=== PATIENT | male | born 1955 | race Caucasian/White ===

== ENCOUNTER 2020-04-23 16:18 | Inpatient (IN) | payer MEDICARE, OTHER ==
[~2020-04-23] VITALS: Ht 182.9 cm; Wt 81.6 kg
[2020-04-23] MEDS ORDERED: METOPROLOL TART50 M1 ORAL (16:30)
[2020-04-23] MEDS ORDERED: LEVOTHYROXINE100 MC1 IV (16:30)
[2020-04-23] MEDS ORDERED: VITAMIN C250 MG ORAL (16:30)
[2020-04-23] MEDS ORDERED: BENZTROPINE MESY1 MG ORAL (16:30)
[2020-04-23] MEDS ORDERED: QUETIAPINE FUM100 MG ORAL (16:30)
[2020-04-23] MEDS ORDERED: ACETAMINOPHEN325 M1 ORAL (16:30)
[2020-04-23] MEDS ORDERED: ASPIRIN-LOW81 MG ORAL (16:30)
[2020-04-23] MEDS ORDERED: MILK OF MA400 MG/51 ORAL (16:30)
--- NOTE | 2020-04-23 16:37 | NUR ---
ED Nurse Note: Pt CRYS from [facility] for [facility] labs. Bun 67 and creatinine 2.2. Pt is alert and orientedx4, ambulatory. Pt set up on monitor. She has been seen by SOFIA. Pt is spitting at nurses. Mask on patient.
[2020-04-23 16:38] VITALS: BP 139/81
[2020-04-23 17:07] LABS: BASOPHILS % (AUTO) 1.1 % (0.0-2.0); EOSINOPHILS % (AUTO) 15.3 % (0.0-3.0); HEMATOCRIT 33.7 % (42.0-52.0); HEMOGLOBIN 10.8 G/DL (14.2-18.0); LYMPHOCYTES % (AUTO) 14.4 % (20.0-45.0); MEAN CORPUSCULAR VOLUME 99 FL (80-99); MONOCYTES % (AUTO) 7.6 % (1.0-10.0); NEUTROPHILS % (AUTO) 61.7 % (45.0-75.0); PLATELET COUNT 279 K/UL (150-450); RED BLOOD COUNT 3.39 M/UL (4.70-6.10); RED CELL DISTRIBUTION WIDTH 12.9 % (11.6-14.8); WHITE BLOOD COUNT 10.9 K/UL (4.8-10.8)
--- NOTE | 2020-04-23 17:12 | Emergency Room Report ---
History of Present Illness General Chief Complaint: Abnormal Labs Source: Patient Present Illness HPI 65-year-old male with history of schizophrenia here with abnormal labs. According patient's primary care provider the patient reportedly had an elevation of his BUN and creatinine at the nursing facility. Patient unable to provide any history secondary to his baseline psychosis but he denies any complaints at this time. Denies fevers, chills, chest pain, palpitation, shortness of breath, back pain, abdominal pain, nausea, vomiting, diarrhea, dysuria. Allergies: Coded Allergies: No Known Allergies (Unverified , 04/23/20) COVID-19 Screening Contact w/high risk pt: No Experienced COVID-19 symptoms?: No COVID-19 Testing performed MERCHANDISE FLOW ASSOCIATE: No Nursing Documentation-[facility] Past Medical History: No History, Except For Review of Systems All Other Systems: negative except mentioned in HPI Physical Exam Vital Signs Date Time Temp Pulse Resp B/P (MAP) Pulse Ox O2 Delivery O2 Flow Rate FiO2 04/23/20 16:14 97.0 70 20 146/82 (103) 100 Room Air Medical Decision Making Diagnostic Impression: Primary Impression: Hyperkalemia Additional Impression: VITALIY (acute kidney injury) ER Course Total critical care time: Approximately 45 minutes Due to a high probability of clinically significant, life threatening deterioration, the patient required the highest level of preparedness to intervene emergently and I personally spent this critical care time directly and personally managing the patient. This critical care time included obtaining a history, examining the patient, pulse oximetry, ordering and reviewing studies, ordering treatments, evaluating response to treatment and updating management plan as needed, frequent reassessment and discussion with other providers as well as arranging for ultimate disposition. This critical to care time was performed to assess and manage the high probability of life-threatening deterioration that could result in multiorgan failure. This critical care time is separate from the separately billable procedures and treating other patients. EKG: NSR, no ischemia, intervals WNL. No ectopy. Rate 67 bpm Rhythm strip: patient monitored for arrhythmias - no malignant dysrhythmias, runs of PVCs, nor pauses noted Laboratory Tests Test 04/23/20 16:37 04/23/20 17:30 04/23/20 18:15 White Blood Count 10.9 K/UL (4.8-10.8) H Red Blood Count 3.39 M/UL (4.70-6.10) L Hemoglobin 10.8 G/DL (14.2-18.0) L Hematocrit 33.7 % (42.0-52.0) L Mean Corpuscular Volume 99 FL (80-99) Mean Corpuscular Hemoglobin 31.7 PG (27.0-31.0) H Mean Corpuscular Hemoglobin Concent 31.9 G/DL (32.0-36.0) L Red Cell Distribution Width 12.9 % (11.6-14.8) Platelet Count 279 K/UL (150-450) Mean Platelet Volume 7.0 FL (6.5-10.1) Neutrophils (%) (Auto) 61.7 % (45.0-75.0) Lymphocytes (%) (Auto) 14.4 % (20.0-45.0) L Monocytes (%) (Auto) 7.6 % (1.0-10.0) Eosinophils (%) (Auto) 15.3 % (0.0-3.0) H Basophils (%) (Auto) 1.1 % (0.0-2.0) Sodium Level 141 MMOL/L (136-145) 141 MMOL/L (136-145) 143 MMOL/L (136-145) Potassium Level 6.3 MMOL/L (3.5-5.1) *H 6.1 MMOL/L (3.5-5.1) *H 4.7 MMOL/L (3.5-5.1) Chloride Level 111 MMOL/L (98-107) H 112 MMOL/L (98-107) H 113 MMOL/L (98-107) H Carbon Dioxide Level 18 MMOL/L (21-32) L 17 MMOL/L (21-32) L 18 MMOL/L (21-32) L Anion Gap 11 mmol/L (5-15) 12 mmol/L (5-15) 12 mmol/L (5-15) Blood Urea Nitrogen 67 mg/dL (7-18) H 67 mg/dL (7-18) H 68 mg/dL (7-18) H Creatinine 2.3 MG/DL (0.55-1.30) H 2.2 MG/DL (0.55-1.30) H 2.3 MG/DL (0.55-1.30) H Estimated Glomerular Filtration Rate 28.6 mL/min (>60) 30.1 mL/min (>60) 28.6 mL/min (>60) Glucose Level 97 MG/DL (74-106) 94 MG/DL (74-106) 85 MG/DL (74-106) Calcium Level 8.2 MG/DL (8.5-10.1) L 7.7 MG/DL (8.5-10.1) L 8.4 MG/DL (8.5-10.1) L Total Bilirubin 0.2 MG/DL (0.2-1.0) 0.2 MG/DL (0.2-1.0) 0.2 MG/DL (0.2-1.0) Aspartate Amino Transferase (AST) 27 U/L (15-37) 24 U/L (15-37) 25 U/L (15-37) Alanine Aminotransferase (ALT) 43 U/L (12-78) 37 U/L (12-78) 39 U/L (12-78) Alkaline Phosphatase 99 U/L (46-116) 92 U/L (46-116) 92 U/L (46-116) Troponin I 0.000 ng/mL (0.000-0.056) Total Protein 8.1 G/DL (6.4-8.2) 7.3 G/DL (6.4-8.2) 7.5 G/DL (6.4-8.2) Albumin 3.2 G/DL (3.4-5.0) L 2.9 G/DL (3.4-5.0) L 3.0 G/DL (3.4-5.0) L Globulin 4.9 g/dL 4.4 g/dL 4.5 g/dL Albumin/Globulin Ratio 0.7 (1.0-2.7) L 0.7 (1.0-2.7) L 0.7 (1.0-2.7) L CXR: indication AMS: Procedure: XRAY Chest 1v Indication: Shortness of breath Technique: One view of the chest Comparison: none Findings: There is nonspecific mild generalized interstitial prominence. No focal airspace consolidation. No effusions. Normal heart size. Impression: Nonspecific acuity indeterminate mild interstitial prominence. Correlate with clinical findings Negative for infiltrate 65-year-old male here with abnormal labs. Patient was found at his halfway to have an elevated BUN and creatinine and potassium. BUN 63 and creatinine 2.3. Patient's potassium on arrival to the emergency department 6.3. Patient had a largely normal EKG without any evidence of peaked T waves or other ST or T wave abnormalities. He was hemodynamically stable throughout the stay in the emergency department and appear to be in no acute distress. He was given calcium, insulin, dextrose, IV fluids, Lasix and a repeat CMP was checked after these medications were administered. Patient's repeat potassium is much improved. He again was hemodynamically stable and neurovascular intact. Currently awaiting results of urinalysis at this time. Chest x-ray was unrem arkable and patient exhibited no evidence of infection as he had normal vital signs. Patient was admitted to telemetry. Last Vital Signs Date Time Temp Pulse Resp B/P (MAP) Pulse Ox O2 Delivery O2 Flow Rate FiO2 04/23/20 16:38 97.0 84 18 139/81 99 Room Air Referrals: Jorge James MD (PCP) Yeyo Hamlin M.D. Apr 23, 2020 17:12
[2020-04-23 17:21] LABS: ALBUMIN 3.2 G/DL (3.4-5.0); ALBUMIN/GLOBULIN RATIO 0.7 (1.0-2.7); BILIRUBIN,TOTAL 0.2 MG/DL (0.2-1.0); CALCIUM 8.2 MG/DL (8.5-10.1); CREATININE 2.3 MG/DL (0.55-1.30)
[2020-04-23 17:23] LABS: POTASSIUM 6.3 MMOL/L (3.5-5.1)
[2020-04-23] MEDS ORDERED: Calcium Gluconate 1gm/10ml vial IVP ONE (17:30)
[2020-04-23] MEDS ORDERED: Insulin Human Regular 100units/ml 3ml IV ONE (17:30)
--- NOTE | 2020-04-23 17:42 | Diagnostic Imaging Report ---
Indication: Shortness of breath Technique: One view of the chest Comparison: none Findings: There is nonspecific mild generalized interstitial prominence. No focal airspace consolidation. No effusions. Normal heart size. Impression: Nonspecific acuity indeterminate mild interstitial prominence. Correlate with clinical findings Negative for infiltrate
[2020-04-23 18:09] LABS: ALBUMIN 2.9 G/DL (3.4-5.0); ALBUMIN/GLOBULIN RATIO 0.7 (1.0-2.7); BILIRUBIN,TOTAL 0.2 MG/DL (0.2-1.0); CALCIUM 7.7 MG/DL (8.5-10.1); CREATININE 2.2 MG/DL (0.55-1.30)
[2020-04-23 18:11] LABS: POTASSIUM 6.1 MMOL/L (3.5-5.1)
[2020-04-23 18:44] VITALS: BP 132/76
[2020-04-23 18:56] LABS: CALCIUM 8.4 MG/DL (8.5-10.1); CREATININE 2.3 MG/DL (0.55-1.30); POTASSIUM 4.7 MMOL/L (3.5-5.1)
[2020-04-23 19:01] LABS: ALBUMIN/GLOBULIN RATIO 0.7 (1.0-2.7); BILIRUBIN,TOTAL 0.2 MG/DL (0.2-1.0)
[2020-04-23 20:00] VITALS: BP 134/69
--- NOTE | 2020-04-23 20:20 | NUR ---
ED Nurse Note: Recieved pt lying quietly in bed, arouses easily, awake and oriented x 4, deneis pain, has room for admission, waiting for Covid results, pt denies CP or any pain, no sob or labored breathing noted, has patent saline lock in left ac, will resume care as ordered and send to floor for admission when test results arrive.
[2020-04-23 20:37] LABS: APPEARANCE,URINE CLEAR; BILIRUBIN, URINE NEGATIVE (NEGATIVE); COLOR,URINE PALE YELLOW; GLUCOSE, URINE (UA) NEGATIVE (NEGATIVE); KETONES,URINE NEGATIVE (NEGATIVE); LEUKOCYTE ESTERASE ,URINE NEGATIVE (NEGATIVE); NITRITE,URINE NEGATIVE (NEGATIVE); PH,URINE 5 (4.5-8.0); PROTEIN,URINE 2+ (NEGATIVE); UROBILINOGEN,URINE NORMAL MG/DL (0.0-1.0)
--- NOTE | 2020-04-23 20:54 | Diagnostic Imaging Report ---
ADDENDUM - Added by Sylwia Hager M.D. on 04/25/2020 8:55 PM (-08:00) Addendum: Exam is a Renal US only- not an Abdomen complete. Only kidneys and urinary bladder were imaged. EXAM: US Abdomen Complete CLINICAL HISTORY: RENAL-A TECHNIQUE: Real-time ultrasound of the abdomen with image documentation. COMPARISON: No relevant prior studies available. FINDINGS: Liver: Unremarkable. No mass. No intrahepatic bile duct dilation. Gallbladder: Unremarkable. No gallstones. Common bile duct: Unremarkable as visualized. No stones. No dilation. Pancreas: Unremarkable as visualized. Kidneys: Right kidney measures 8.7 cm and contains a 1.2 cm cyst within the lower pole. Mild hydronephrosis. Left kidney measures 9.3 cm long axis. Mild hydronephrosis. No stones. Spleen: Unremarkable. No splenomegaly. Aorta: Unremarkable. No aneurysm. Inferior vena cava: Unremarkable. Other findings: Large volume of urine retention postvoid measuring 620 mL. IMPRESSION: 1. Large volume of urine retention postvoid with mild bilateral hydronephrosis. 3. 1.2 cm cyst lower pole right kidney. No follow-up imaging necessary
[2020-04-23] MEDS ORDERED: Tamsulosin 0.4mg cap ORAL SCH (21:00)
[2020-04-23 22:00] VITALS: BP 138/88
--- NOTE | 2020-04-23 22:08 | NUR ---
ED Nurse Note: Pt has room for admission, report called to floor nurse VANDANA Patterson, pt is awake and oriented x 4, ambulatory, no changes or distress noted, taken to unit via gurney with cardiac monitoring, nad noted during transfer to floor unit.
--- NOTE | 2020-04-23 22:20 | NUR ---
NURSE NOTES: Report received from VANDANA Fields.
--- NOTE | 2020-04-23 22:32 | NUR ---
NURSE NOTES: Received patient from E.R via [facility]. Patient is awake, alert and oriented x 2-3. Oriented. Oriented to room and telemetry unit. Place cardiac specialist and shows sinus rhythm with no complaints of chest pain. Patient is o room air, sating 98%. IV site is on left AC G-20 saline lock that is patent and intact. Safety measures are in place, bed in lowest and locked position, side rails up x 2, call light button and bedside table within reach, instructed to call for any assistance needed. Will call MD for admission orders.
[2020-04-23 22:35] VITALS: BP 156/88
--- NOTE | 2020-04-23 22:55 | NUR ---
NURSE NOTES: Called Dr. James and left a message, awaiting for call back.
[2020-04-23] MEDS: Metoprolol Tartrate 50mg tab ORAL SCH (23:09)
[2020-04-24] VITALS: BP 144/81
[2020-04-24 04:00] VITALS: BP 144/86
[2020-04-24] MEDS: Levothyroxine 25mcg tab ORAL SCH (06:02)
[2020-04-24 07:10] LABS: BASOPHILS % (AUTO) 0.8 % (0.0-2.0); EOSINOPHILS % (AUTO) 8.7 % (0.0-3.0); HEMATOCRIT 35.4 % (42.0-52.0); HEMOGLOBIN 11.2 G/DL (14.2-18.0); LYMPHOCYTES % (AUTO) 15.4 % (20.0-45.0); MEAN CORPUSCULAR VOLUME 102 FL (80-99); MONOCYTES % (AUTO) 6.8 % (1.0-10.0); NEUTROPHILS % (AUTO) 68.4 % (45.0-75.0); PLATELET COUNT 297 K/UL (150-450); RED BLOOD COUNT 3.49 M/UL (4.70-6.10); RED CELL DISTRIBUTION WIDTH 12.5 % (11.6-14.8)
--- NOTE | 2020-04-24 07:25 | NUR ---
NURSE HAND-OFF REPORT: Important Events on Shift: Patient has been resting well confortably with no complaints made. Patient Status: Patient is awake on bed, in stable condition. Plan of care endorsed. Diet: Regular, pureed moist. Pending Orders: none Pending Results/Labs: Laboratory result that was done this morning Pending MD notification:none Latest Vital Signs: Temperature 97.8 , Pulse 72 , B/P 144 /86 , Respiratory Rate 19 , O2 SAT 99 , Room Air, O2 Flow Rate . Vital Sign Comment: stable EKG Rhythm: Sinus Rhythm Rhythm change?: N MD Notified?: - MD Response: Latest Dawson Fall Score: 45 Fall Risk: High Risk Safety Measures: Call light Within Reach, Bed Alarm Zone 1, Side Rails Side Rails x2, Bed position Low and Locked. Fall Precautions: Yellow Socks Door Sign Patient Fall Education Report given to VANDANA Larose.
--- NOTE | 2020-04-24 07:30 | NUR ---
NURSE NOTES: Received pt from VANDANA Mares, pt is awake and confused, pt is in RA, no SOB or acute respiratory distress noted. pt is on continues parikh monitoring. pt has intact iv access LAC 20G SL. Pt is eating breakfast by observation, All needs attended, bed is locked and is in the lowest position, call light within easy reach. will continue to monitor.
[2020-04-24 07:40] LABS: ALANINE AMINOTRANSFERASE 38 U/L (12-78); ALBUMIN 3.2 G/DL (3.4-5.0); ALBUMIN/GLOBULIN RATIO 0.7 (1.0-2.7); ALKALINE PHOSPHATASE 103 U/L (46-116); ASPARTATE AMINO TRANSFERASE 26 U/L (15-37); BILIRUBIN,TOTAL 0.2 MG/DL (0.2-1.0); BLOOD UREA NITROGEN 63 mg/dL (7-18); CALCIUM 8.2 MG/DL (8.5-10.1); CHOLESTEROL 153 MG/DL (< 200); CREATINE KINASE 92 U/L (26-308); CREATININE 2.4 MG/DL (0.55-1.30); FERRITIN 113 NG/ML (8-388); GAMMA GLUTAMYL TRANSPEPTIDASE 12 U/L (5-85); HDL CHOLESTEROL 50 MG/DL (40-60); LACTATE DEHYDROGENASE 188 U/L (81-234); PHOSPHORUS 4.2 MG/DL (2.5-4.9); POTASSIUM 4.8 MMOL/L (3.5-5.1); SODIUM 139 MMOL/L (136-145)
[2020-04-24 07:51] LABS: ANION GAP 12 mmol/L (5-15); CARBON DIOXIDE 19 MMOL/L (21-32); CHLORIDE 108 MMOL/L (98-107); TRIGLYCERIDES 58 MG/DL (30-150)
[2020-04-24 08:00] VITALS: BP 118/70
[2020-04-24 08:08] LABS: % IRON SATURATION 23 % (15-50); IRON 50 ug/dL (50-175); TOTAL IRON BINDING CAPACITY 218 ug/dL (250-450)
[2020-04-24] MEDS ORDERED: Varibar Honey 250ml MC PRN (08:15)
[2020-04-24] MEDS ORDERED: Varibar Pudding 230ml MC PRN (08:15)
[2020-04-24] MEDS ORDERED: Varibar Nectar 240ml MC PRN (08:15)
[2020-04-24] MEDS ORDERED: Varibar Thin Liquid powder 148gm MC PRN (08:15)
--- NOTE | 2020-04-24 08:41 | NUR ---
Speech Pathology Note (Bedside Dysphagia Evaluation) Brief Note: Mr. Sinclair is a 65 year old male presents with schizophrenia admitted from [facility] on 04/23/2020 for hypokalemia and increased in BUN and creatine. Findings: Mr. Sinclair is alert and oriented to self, place(hospital) and time. He has some tardive dyskinesia with reduced speech intelligibility. He said he does not have dentures. He had his breakfast and stated he did well without problems. He enjoyed oat meal according to him. Given him PO trial, he has mild oral phase issues due to tardive dyskinesia and lack of teeth. His PO diet at [facility] is mechanical soft diet and thin liquid. Current diet is pureed her [place]. Interpretation: 1. Mild oral phase of dysphagia with tardive dyskinesia and lack of teeth Plan: 1. Continue with pureed and thin liquid during this hospital course -Swallow evaluation at [facility]/or his residency to re-adjust his diet texture Becki Carmen
[2020-04-24] MEDS: Aspirin EC 81mg tab ORAL SCH (09:53)
[2020-04-24] MEDS: Metoprolol Tartrate 50mg tab ORAL SCH ×2 (09:53→20:26)
--- NOTE | 2020-04-24 09:59 | NUR ---
NURSE NOTES: Dr James visited pt and is aware about hydronephrosis and urin retention, ordered consult with Dr Acosta and Dr Ramos, noted and carried out, both MD are aware. will continue to monitor.
[2020-04-24] MEDS ORDERED: ASCORBIC ACID500 MG ORAL (10:29)
[2020-04-24] MEDS ORDERED: BENZTROPINE ME0.5 MG ORAL (10:29)
[2020-04-24] MEDS ORDERED: SYNTHROID25 MCG ORAL (10:29)
--- NOTE | 2020-04-24 11:00 | History and Physical Report ---
DATE OF ADMISSION: 04/23/2020 HISTORY OF PRESENT ILLNESS: The patient admitted for acute renal failure. The patient has been having chronic renal insufficiency that is getting worse gradually. The patient also has hyperkalemia admitted for that reason as well. The patient denies nausea, vomiting, or diarrhea. Denies rectal bleeding. Denies shortness of breath. Denies cough. Denies fever or chills. Denies weight gain. PAST MEDICAL HISTORY: Chronic renal insufficiency, hypothyroidism, hypertension, BPH, psychosis. PAST SURGICAL HISTORY: Left hand surgery. MEDICATIONS: Aspirin, vitamin C, Cogentin, Levoxyl, metoprolol, and Seroquel. ALLERGIES: No known allergies. FAMILY HISTORY: Noncontributory. SOCIAL HISTORY: He has history of smoking. Denies history of drug and alcohol abuse. PHYSICAL EXAMINATION: VITAL SIGNS: Temperature is 98, pulse 79, blood pressure 144/81. HEENT: PERRLA. NECK: Supple. No lymphadenopathy. CHEST: Clear to auscultation. CARDIOVASCULAR: Regular rate and rhythm. No murmurs or extra sounds. GASTROINTESTINAL: Soft, nontender, nondistended. No organomegaly. EXTREMITIES: No edema. Moves all four extremities. Sensory intact to light touch. Reflexes in both sides. Has generalized weakness. Dorsalis pedal pulses are present. LABORATORY DATA: WBC of 10.9, hemoglobin of 10.8, platelets of 279. Sodium 141, potassium of 6.3, BUN of 67, creatinine of 2.3, glucose of 97. ASSESSMENT AND PLAN: Hyperkalemia. Acute renal failure on top of chronic renal failure. The patient already got treatment for the hyperkalemia from the emergency room, . I have consulted Dr. Acosta, Dr. Supa Grey, Dr. Ramos for the bilateral hydronephrosis that shows on the ultrasound as well as for acute renal failure management. Dr. Supa Grey has been consulted to rule out any UTI or infectious etiology. Jorge James M.D. DR: Chantel JOB#: [id number] CC:
[2020-04-24 12:00] VITALS: BP 111/73
--- NOTE | 2020-04-24 12:51 | NUR ---
P.T Note: P.T evaluation completed. Pt is alert, oriented to self but not to time and current situation. Pt however is cooperative and follows commands appropriately. Pt is independent with ADL/functional mobilities and able to ambulate within the room and along hallways w/o AD needed independently. Current functional status does note warrant skilled P.T service at this time. encourage OOB activities with nursing supervision. DC P.T services.
--- NOTE | 2020-04-24 13:13 | NUR ---
NURSE NOTES:WOUND ASSESSMENT PATIENT AWAKE AND ALERT. SKIN ASSESSMENT PERMITTED OF FEET AND SACRUM BUT HE REFUSED TO BE REPOSITIONED. BILATERAL LOW LEGS AND FEET APPEAR DRY AND SCALY, POSSIBLE DERMATITIS, THOUGH NO INDICATIONS OF ANY PRESSURE INJURY. SACRUM WELL WAS INTACT WITHOUT ANY REDNESS NOTED. RECOMMEND: CONTINUED WOUND PREVENTION PROTOCOLS ENCOURAGE REPOSITIONING ALLOWED BY PATIENT.
--- NOTE | 2020-04-24 14:00 | Consultation ---
DATE OF CONSULTATION: 04/24/2020 INFECTIOUS DISEASES CONSULTATION CONSULTING PHYSICIAN: Supa Grey MD PRIMARY ATTENDING PHYSICIAN: Jorge James MD REASON FOR CONSULTATION: Urinary retention. HISTORY OF PRESENT ILLNESS: This is a 65-year-old white male admitted yesterday from nursing facility because of abnormal labs, had elevated BUN and creatinine, also has hyperkalemia with potassium level of 6.3. WBC was slightly elevated at 10.9. The patient has abdominal ultrasound which showed post void urinary retention and mild bilateral hydronephrosis. PAST MEDICAL HISTORY: Significant for chronic kidney disease, hypothyroidism, hypertension, BPH, schizophrenia. PAST SURGICAL HISTORY: Left hand surgery. ALLERGIES: No known drug allergies. MEDICATIONS: Aspirin, levothyroxine, Tylenol, Flomax, metoprolol. SOCIAL HISTORY: Single. Denies alcohol, drug abuse, or smoking. pen[facility]iary resident. REVIEW OF SYSTEMS: The patient does not have any symptoms. PHYSICAL EXAMINATION: VITAL SIGNS: Temperature 98, pulse 79, blood pressure 118/70. GENERAL APPEARANCE: No acute distress. HEAD AND NECK: [place] conjunctiva. HEART: Normal rate. LUNGS: Clear. ABDOMEN: Soft and nontender. GENITOURINARY: Wayne catheter and clear urine. EXTREMITIES: No edema. LABORATORY AND DIAGNOSTIC DATA: WBC today is 10, hemoglobin 11.2, hematocrit 35.4, and platelets 297. Sodium 139, potassium 4.8, chloride 108, bicarb 19, BUN 63, creatinine 2.3. UA showed wbc's of 0 to 2, rbc's of 2 to 4. COVID test was negative. IMPRESSION: Urinary retention likely secondary to BPH, also bilateral hydronephrosis , acute kidney injury on chronic kidney disease, hyperkalemia that is corrected, hypertension that is well controlled, and hypothyroidism. RECOMMENDATION: Observe off antibiotic. We will follow up the cultures and clinical course. At the end of my exam, I thank Dr. James, for involving me in the care of this patient. Supa Grey M.D. DR: Desiree JOB#: [id number] CC: TREY
--- NOTE | 2020-04-24 14:56 | Consultation ---
Consult Note Consult Note I am asked to evaluate the patient at the request of Dr. Quesada for renal failure 65-year-old male with history of schizophrenia here with abnormal labs. According patient's primary care provider the patient reportedly had an elevation of his BUN and creatinine at the nursing facility. Patient unable to provide any history secondary to his baseline psychosis but he denies any complaints at this time. Denies fevers, chills, chest pain, palpitation, shortness of breath, back pain, abdominal pain, nausea, vomiting, diarrhea, dysuria. Allergies: No Known Allergies (Unverified , 04/23/20) COVID-19 Screening Contact w/high risk pt: No Experienced COVID-19 symptoms?: No COVID-19 Testing performed MOLDING PROCESS TECHNICIAN: No Vital Signs in ER Date Time Temp Pulse Resp B/P (MAP) Pulse Ox O2 Delivery O2 Flow Rate FiO2 04/23/20 16:14 97.0 70 20 146/82 (103) 100 Room Air PHYSICAL EXAMINATION: VITAL SIGNS: Temperature 98, pulse 79, blood pressure 118/70. GENERAL APPEARANCE: No acute distress. HEAD AND NECK: [place] conjunctiva. HEART: Normal rate. LUNGS: Clear. ABDOMEN: Soft and nontender. GENITOURINARY: Wayne catheter and clear urine. EXTREMITIES: No edema. LABORATORY AND DIAGNOSTIC DATA: WBC today is 10, hemoglobin 11.2, hematocrit 35.4, and platelets 297. Sodium 139, potassium 4.8, chloride 108, bicarb 19, BUN 63, creatinine 2.3. UA showed wbc's of 0 to 2, rbc's of 2 to 4. COVID test was negative. . Assessment/Plan Acute renal failure Hyperkalemia on presentation to ER Most likely underlying chronic kidney failure Urinary outlet obstruction, as per ultrasound results Bilateral hydronephrosis Mild anemia History of schizophrenia Suggestions: Wayne catheter Urological evaluation Slow hydration Avoid nephrotoxic Monitor renal parameters Discussed with PMD and RN Kidney ultrasound: 1. Large volume of urine retention postvoid with mild bilateral hydronephrosis. 3. 1.2 cm cyst lower pole right kidney. No follow-up imaging necessary Darien Acosta MD Apr 24, 2020 14:56
[2020-04-24] MEDS: Tamsulosin 0.4mg cap ORAL SCH (15:41)
[2020-04-24] MEDS: D5 1/2NS 1,000 ML IV SCH (15:42)
--- NOTE | 2020-04-24 15:46 | NUR ---
CASE MANAGEMENT:REVIEW BIBA FROM [facility] CC: ABNORMAL LABS SI: ACUTE RENAL FAILURE. HYPERKALEMIA 97.0 70 20 146/82 100% ON RA K+6.3 BUN+67 CR+2.3 IS: IV CALCIUM GLUCONATE IV INSULIN IV D50W 1L NS BOLUS IV LASIX : TO TELEMETRY
[2020-04-24 16:00] VITALS: BP 124/70
--- NOTE | 2020-04-24 19:20 | NUR ---
NURSE HAND-OFF REPORT: Important Events on Shift: Patient Status: Diet: Pending Orders: Pending Results/Labs: Pending MD notification: Latest Vital Signs: Temperature 97.6 , Pulse 73 , B/P 124 /70 , Respiratory Rate 20 , O2 SAT 98 , Room Air, O2 Flow Rate . Vital Sign Comment: EKG Rhythm: Sinus Rhythm Rhythm change?: N MD Notified?: - MD Response: Latest Dawson Fall Score: 60 Fall Risk: High Risk Safety Measures: Call light Within Reach, Bed Alarm Zone 1, Side Rails Side Rails x3, Bed position Low and Locked. Fall Precautions: Yellow Socks Yellow Gown Door Sign Patient Fall Education Report given to . pt is stable and awake, no stress noted. Endorsed plan of care. endorsed to monitor I/O.
--- NOTE | 2020-04-24 19:23 | NUR ---
NURSE NOTES: Report received from Thuan ROSS. Patient is noted to be awake and alert x 2. Patient is noted to be on room, no complaints of chest pain or shortness of breath at this time. Patient does not appear to be in respiratory distress at this time. Patient is noted to have left AC 20 brandi IV access with fluids running per MD orders. Patient is noted to have indwelling Wayne catheter that was placed today per Thuan ROSS. Wayne placed due to urinary retention, was endorsed to Brien ROSS that 1,200 cc of urine was drained during initial insertion of they Wayne catheter. Wayne is noted to continue to drain yellow urine at this time. Bed is locked, alarmed, and in lowest position. Call light in reach. Patient has no complaints at this time. Will continue to follow plan of care.
[2020-04-24 20:00] VITALS: BP 140/85
--- NOTE | 2020-04-24 23:59 | NUR ---
NURSE NOTES: patient found to have infiltrated IV access in right AC. IV removed by Brien ROSS. Brien ROSS elevated patients arm. 24 gaga IV access obtained in left hand, fluids continued per MD orders.
[2020-04-25] VITALS: BP 133/67
[2020-04-25 04:00] VITALS: BP 140/79
--- NOTE | 2020-04-25 04:10 | Cardiology Report ---
APPROVED REPORT EKG Measurement Heart [id number] <Conclusion> Normal sinus rhythm Minimal voltage criteria for LVH, may be normal variant Borderline ECG
[2020-04-25] MEDS: D5 1/2NS 1,000 ML IV SCH ×2 (05:15→17:07)
[2020-04-25 06:23] LABS: BASOPHILS % (AUTO) 0.8 % (0.0-2.0); HEMATOCRIT 34.9 % (42.0-52.0); HEMOGLOBIN 10.9 G/DL (14.2-18.0); LYMPHOCYTES % (AUTO) 20.5 % (20.0-45.0); MEAN CORPUSCULAR VOLUME 101 FL (80-99); MONOCYTES % (AUTO) 7.3 % (1.0-10.0); NEUTROPHILS % (AUTO) 52.4 % (45.0-75.0); PLATELET COUNT 277 K/UL (150-450); RED BLOOD COUNT 3.45 M/UL (4.70-6.10); RED CELL DISTRIBUTION WIDTH 12.4 % (11.6-14.8); WHITE BLOOD COUNT 10.4 K/UL (4.8-10.8)
[2020-04-25 06:52] LABS: ALBUMIN 2.8 G/DL (3.4-5.0); ALBUMIN/GLOBULIN RATIO 0.6 (1.0-2.7); BILIRUBIN,TOTAL 0.2 MG/DL (0.2-1.0); CALCIUM 8.1 MG/DL (8.5-10.1); CREATININE 2.4 MG/DL (0.55-1.30); POTASSIUM 5.5 MMOL/L (3.5-5.1)
[2020-04-25] MEDS: Levothyroxine 25mcg tab ORAL SCH (06:54)
--- NOTE | 2020-04-25 07:30 | NUR ---
NURSE NOTES: Received pt from VANDANA Tesfaye, pt is awake and confused, pt is in RA, no SOB or acute respiratory distress noted. pt is on continues parikh monitoring. pt has intact iv access LH 24G SL. Pt is eating breakfast by observation, Dr Acosta is aware about K 5.5 MG 1.7 and other labs and V/SMD will F/U. All needs attended, bed is locked and is in the lowest position, call light within easy reach. will continue to monitor.
--- NOTE | 2020-04-25 07:30 | NUR ---
NURSE HAND-OFF REPORT: Important Events on Shift: IV access obtained. patient slept most of shift. Patient Status: full code Diet: regular puree moist Pending Orders: none Pending Results/Labs:none Pending MD notification:none Latest Vital Signs: Temperature 97.2 , Pulse 70 , B/P 140 /79 , Respiratory Rate 20 , O2 SAT 96 , Room Air, O2 Flow Rate . Vital Sign Comment: within normal limits. EKG Rhythm: Sinus Rhythm Rhythm change?: N MD Notified?: - MD Response: Latest Dawson Fall Score: 60 Fall Risk: High Risk Safety Measures: Call light Within Reach, Bed Alarm Zone 1, Side Rails Side Rails x3, Bed position Low and Locked. Fall Precautions: Yellow Socks Yellow Gown Door Sign Patient Fall Education Report given to Kay ROSS.
[2020-04-25 08:00] VITALS: BP 155/68
[2020-04-25] MEDS: Tamsulosin 0.4mg cap ORAL SCH ×2 (08:49→17:06)
[2020-04-25] MEDS: Aspirin EC 81mg tab ORAL SCH (08:49)
[2020-04-25] MEDS: Metoprolol Tartrate 50mg tab ORAL SCH (08:49)
[2020-04-25] MEDS ORDERED: Sodium Polystyrene Sulfonate 15gm Powder ORAL SCH (09:30)
--- NOTE | 2020-04-25 10:45 | Infectious Diseases Prog Note ---
Assessment/Plan Assessment/Plan IMPRESSION: Urinary retention BPH, Hydronephrosis , Acute kidney injury on chronic kidney disease, Hyperkalemia that is corrected, Hypertension Hypothyroidism. Psychosis RECOMMENDATION: Observe off antibiotic Subjective ROS Limited/Unobtainable: Yes Constitutional: Reports: no symptoms Respiratory: Reports: no symptoms Gastrointestinal/Abdominal: Reports: no symptoms Genitourinary: Reports: no symptoms Allergies: Coded Allergies: No Known Allergies (Unverified , 04/23/20) Objective Last 24 Hour Vital Signs Date Time Temp Pulse Resp B/P (MAP) Pulse Ox O2 Delivery O2 Flow Rate FiO2 04/25/20 08:49 68 155/68 04/25/20 08:00 98.1 68 20 155/68 (97) 96 04/25/20 07:41 65 04/25/20 04:00 97.2 70 20 140/79 (99) 96 04/25/20 04:00 66 04/25/20 00:00 98.6 82 20 133/67 (89) 96 04/25/20 00:00 68 04/24/20 21:00 Room Air 04/24/20 20:26 74 140/85 04/24/20 20:00 98.2 74 18 140/85 (103) 98 04/24/20 20:00 73 04/24/20 16:00 97.6 73 20 124/70 (88) 98 04/24/20 15:38 77 04/24/20 12:02 74 04/24/20 12:00 98.0 76 20 111/73 (86) 100 Height (Feet): 6 Height (Inches): 0.00 Weight (Pounds): 180 General Appearance: no acute distress HEENT: mucous membranes moist Respiratory/Chest: lungs clear Cardiovascular: normal rate Abdomen: soft, non tender Genitourinary: other - Wayne catheter Extremities: no edema Neurologic/Psychiatric: alert, responsive Microbiology Date/Time Source Procedure Growth Status 04/23/20 20:50 Nasopharynx SARS-CoV-2 RdRp Gene Assay - Final Complete 04/23/20 18:50 Rectum Received Laboratory Tests Test 04/25/20 05:46 White Blood Count 10.4 K/UL (4.8-10.8) Red Blood Count 3.45 M/UL (4.70-6.10) L Hemoglobin 10.9 G/DL (14.2-18.0) L Hematocrit 34.9 % (42.0-52.0) L Mean Corpuscular Volume 101 FL (80-99) H Mean Corpuscular Hemoglobin 31.6 PG (27.0-31.0) H Mean Corpuscular Hemoglobin Concent 31.2 G/DL (32.0-36.0) L Red Cell Distribution Width 12.4 % (11.6-14.8) Platelet Count 277 K/UL (150-450) Mean Platelet Volume 6.7 FL (6.5-10.1) Neutrophils (%) (Auto) 52.4 % (45.0-75.0) Lymphocytes (%) (Auto) 20.5 % (20.0-45.0) Monocytes (%) (Auto) 7.3 % (1.0-10.0) Eosinophils (%) (Auto) 19.0 % (0.0-3.0) H Basophils (%) (Auto) 0.8 % (0.0-2.0) Sodium Level 137 MMOL/L (136-145) Potassium Level 5.5 MMOL/L (3.5-5.1) H Chloride Level 109 MMOL/L (98-107) H Carbon Dioxide Level 20 MMOL/L (21-32) L Anion Gap 9 mmol/L (5-15) Blood Urea Nitrogen 52 mg/dL (7-18) H Creatinine 2.4 MG/DL (0.55-1.30) H Estimat Glomerular Filtration Rate 27.2 mL/min (>60) Glucose Level 110 MG/DL (74-106) H Uric Acid 4.8 MG/DL (2.6-7.2) Calcium Level 8.1 MG/DL (8.5-10.1) L Phosphorus Level 3.0 MG/DL (2.5-4.9) Magnesium Level 1.7 MG/DL (1.8-2.4) L Total Bilirubin 0.2 MG/DL (0.2-1.0) Aspartate Amino Transf (AST/SGOT) 25 U/L (15-37) Alanine Aminotransferase (ALT/SGPT) 31 U/L (12-78) Alkaline Phosphatase 88 U/L (46-116) C-Reactive Protein, Quantitative 0.9 mg/dL (0.00-0.90) Total Protein 7.3 G/DL (6.4-8.2) Albumin 2.8 G/DL (3.4-5.0) L Globulin 4.5 g/dL Albumin/Globulin Ratio 0.6 (1.0-2.7) L Current Medications Medications (Trade) Dose Ordered Sig/Eulalia Route PRN Reason Start Time Stop Time Status Last Admin Dose Admin Acetaminophen (Tylenol) 325 mg Q4H PRN ORAL Mild Pain (Pain Scale 1-3) 04/23/20 20:00 05/23/20 19:59 Acetaminophen (Tylenol) 650 mg Q4H PRN ORAL Mild Pain (Pain Scale 1-3) 04/23/20 23:00 05/23/20 22:59 Amlodipine Besylate (Norvasc) 5 mg DAILY ORAL 04/26/20 09:00 05/26/20 08:59 Amlodipine Besylate (Norvasc) 5 mg ONCE ORAL 04/25/20 10:45 04/25/20 12:30 Aspirin (Ecotrin) 81 mg DAILY ORAL 04/24/20 09:00 06/08/20 08:59 04/25/20 08:49 Barium Sulfate (Varibar Honey) 250 ml NOW PRN MC RAD 04/24/20 08:15 04/27/20 08:04 Barium Sulfate (Varibar Ovett) 240 ml NOW PRN MC RAD 04/24/20 08:15 04/27/20 08:04 Barium Sulfate (Varibar Pudding) 230 ml NOW PRN MC RAD 04/24/20 08:15 04/27/20 08:04 Barium Sulfate (Varibar Thin Liquid powder) 148 gm NOW PRN MC RAD 04/24/20 08:15 04/27/20 08:04 Dextrose/Sodium Chloride 1,000 ml @ 75 mls/hr [id number] IV 04/24/20 15:15 05/24/20 15:14 04/25/20 05:15 Levothyroxine Sodium (Synthroid) 25 mcg ACBREAKFAST ORAL 04/24/20 06:30 05/24/20 06:29 04/25/20 06:54 Metoprolol Tartrate (Lopressor) 50 mg EVERY 12 HOURS ORAL 04/23/20 21:00 07/22/20 20:59 04/25/20 08:49 Tamsulosin HCl (Flomax) 0.4 mg BID ORAL 04/24/20 15:03 05/24/20 15:02 04/25/20 08:49 Supa Grey MD Apr 25, 2020 10:45
[2020-04-25 12:00] VITALS: BP 106/57
--- NOTE | 2020-04-25 12:59 | General Progress Note ---
Subjective ROS Limited/Unobtainable: Yes Allergies: Coded Allergies: No Known Allergies (Unverified , 04/23/20) Objective Last 24 Hour Vital Signs Date Time Temp Pulse Resp B/P (MAP) Pulse Ox O2 Delivery O2 Flow Rate FiO2 04/25/20 12:00 97.2 73 20 106/57 (73) 96 04/25/20 11:36 67 04/25/20 10:46 68 155/68 04/25/20 09:00 Room Air 04/25/20 08:49 68 155/68 04/25/20 08:00 98.1 68 20 155/68 (97) 96 04/25/20 07:41 65 04/25/20 04:00 97.2 70 20 140/79 (99) 96 04/25/20 04:00 66 04/25/20 00:00 98.6 82 20 133/67 (89) 96 04/25/20 00:00 68 04/24/20 21:00 Room Air 04/24/20 20:26 74 140/85 04/24/20 20:00 98.2 74 18 140/85 (103) 98 04/24/20 20:00 73 04/24/20 16:00 97.6 73 20 124/70 (88) 98 04/24/20 15:38 77 Intake and Output 04/24/20 04/25/20 19:00 07:00 Intake Total 625 ml 825 ml Output Total 1700 ml 800 ml Balance -1075 ml 25 ml Intake Oral 400 ml IV Total 225 ml 825 ml Output Urine Total 1700 ml 800 ml # Voids 2 Laboratory Tests 04/25/20 05:46: White Blood Count 10.4, Red Blood Count 3.45L, Hemoglobin 10.9L, Hematocrit 34.9L, Mean Corpuscular Volume 101H, Mean Corpuscular Hemoglobin 31.6H, Mean Corpuscular Hemoglobin Concent 31.2L, Red Cell Distribution Width 12.4, Platelet Count 277, Mean Platelet Volume 6.7, Neutrophils (%) (Auto) 52.4, Lymphocytes (%) (Auto) 20.5, Monocytes (%) (Auto) 7.3, Eosinophils (%) (Auto) 19.0H, Basophils (%) (Auto) 0.8, Sodium Level 137, Potassium Level 5.5H, Chloride Level 109H, Carbon Dioxide Level 20L, Anion Gap 9, Blood Urea Nitrogen 52H, Creatinine 2.4H, Estimat Glomerular Filtration Rate 27.2, Glucose Level 110H, Uric Acid 4.8, Calcium Level 8.1L, Phosphorus Level 3.0, Magnesium Level 1.7L, Total Bilirubin 0.2, Aspartate Amino Transf (AST/SGOT) 25, Alanine Aminotransferase (ALT/SGPT) 31, Alkaline Phosphatase 88, C-Reactive Protein, Quantitative 0.9, Total Protein 7.3, Albumin 2.8L, Globulin 4.5, Albumin/Globulin Ratio 0.6L Height (Feet): 6 Height (Inches): 0.00 Weight (Pounds): 180 Assessment/Plan Problem List: (1) Hyperkalemia ICD Codes: E87.5 - Hyperkalemia SNOMED: 47632743, 3503109 (2) VITALIY (acute kidney injury) ICD Codes: N17.9 - Acute kidney failure, unspecified SNOMED: 71570244, 5630071 (3) Hydronephrosis ICD Codes: N13.30 - Unspecified hydronephrosis SNOMED: 86518219 Status: progressing Assessment/Plan: worsening renal failure consulted dr almaraz for bilat hydro and mora and ordered Jorge Adame MD Apr 25, 2020 12:59
[2020-04-25 16:00] VITALS: BP 118/72
--- NOTE | 2020-04-25 16:06 | Nephrology Progress Note ---
Assessment/Plan Problem List: (1) VITALIY (acute kidney injury) (2) Hydronephrosis (3) Hyperkalemia (4) Anemia (5) Urinary outflow obstruction Assessment Acute renal failure Hyperkalemia on presentation to ER Most likely underlying chronic kidney failure Urinary outlet obstruction, as per ultrasound results Bilateral hydronephrosis Mild anemia History of schizophrenia Plan April 25: Patient given Kayexalate for high potassium. Norvasc added for better blood pressure control. Continue to monitor renal parameters. April 24: As follow: Wayne catheter Urological evaluation Slow hydration Avoid nephrotoxic Monitor renal parameters Discussed with PMD and RN Kidney ultrasound: 1. Large volume of urine retention postvoid with mild bilateral hydronephrosis. 3. 1.2 cm cyst lower pole right kidney. No follow-up imaging necessary Subjective ROS Limited/Unobtainable: No Constitutional: Reports: malaise Objective Objective Last 24 Hour Vital Signs Date Time Temp Pulse Resp B/P (MAP) Pulse Ox O2 Delivery O2 Flow Rate FiO2 04/25/20 12:00 97.2 73 20 106/57 (73) 96 04/25/20 11:36 67 04/25/20 10:46 68 155/68 04/25/20 09:00 Room Air 04/25/20 08:49 68 155/68 04/25/20 08:00 98.1 68 20 155/68 (97) 96 04/25/20 07:41 65 04/25/20 04:00 97.2 70 20 140/79 (99) 96 04/25/20 04:00 66 04/25/20 00:00 98.6 82 20 133/67 (89) 96 04/25/20 00:00 68 04/24/20 21:00 Room Air 04/24/20 20:26 74 140/85 04/24/20 20:00 98.2 74 18 140/85 (103) 98 04/24/20 20:00 73 Intake and Output 04/24/20 04/25/20 19:00 07:00 Intake Total 625 ml 825 ml Output Total 1700 ml 800 ml Balance -1075 ml 25 ml Intake Oral 400 ml IV Total 225 ml 825 ml Output Urine Total 1700 ml 800 ml # Voids 2 Current Medications Medications (Trade) Dose Ordered Sig/Eulalia Route PRN Reason Start Time Stop Time Status Last Admin Dose Admin Acetaminophen (Tylenol) 325 mg Q4H PRN ORAL Mild Pain (Pain Scale 1-3) 04/23/20 20:00 05/23/20 19:59 Acetaminophen (Tylenol) 650 mg Q4H PRN ORAL Mild Pain (Pain Scale 1-3) 04/23/20 23:00 05/23/20 22:59 Amlodipine Besylate (Norvasc) 5 mg DAILY ORAL 04/26/20 09:00 05/26/20 08:59 Aspirin (Ecotrin) 81 mg DAILY ORAL 04/24/20 09:00 06/08/20 08:59 04/25/20 08:49 Barium Sulfate (Varibar Honey) 250 ml NOW PRN RAD 04/24/20 08:15 04/27/20 08:04 Barium Sulfate (Varibar Stoy) 240 ml NOW PRN RAD 04/24/20 08:15 04/27/20 08:04 Barium Sulfate (Varibar Pudding) 230 ml NOW PRN RAD 04/24/20 08:15 04/27/20 08:04 Barium Sulfate (Varibar Thin Liquid powder) 148 gm NOW PRN RAD 04/24/20 08:15 04/27/20 08:04 Dextrose/Sodium Chloride 1,000 ml @ 75 mls/hr [id number] IV 04/24/20 15:15 05/24/20 15:14 04/25/20 05:15 Levothyroxine Sodium (Synthroid) 25 mcg ACBREAKFAST ORAL 04/24/20 06:30 05/24/20 06:29 04/25/20 06:54 Metoprolol Tartrate (Lopressor) 50 mg EVERY 12 HOURS ORAL 04/23/20 21:00 07/22/20 20:59 04/25/20 08:49 Tamsulosin HCl (Flomax) 0.4 mg BID ORAL 04/24/20 15:03 05/24/20 15:02 04/25/20 08:49 Laboratory Tests 04/25/20 05:46: White Blood Count 10.4, Red Blood Count 3.45L, Hemoglobin 10.9L, Hematocrit 34.9L, Mean Corpuscular Volume 101H, Mean Corpuscular Hemoglobin 31.6H, Mean Corpuscular Hemoglobin Concent 31.2L, Red Cell Distribution Width 12.4, Platelet Count 277, Mean Platelet Volume 6.7, Neutrophils (%) (Auto) 52.4, Lymphocytes (%) (Auto) 20.5, Monocytes (%) (Auto) 7.3, Eosinophils (%) (Auto) 19.0H, Basophils (%) (Auto) 0.8, Sodium Level 137, Potassium Level 5.5H, Chloride Level 109H, Carbon Dioxide Level 20L, Anion Gap 9, Blood Urea Nitrogen 52H, Creatinine 2.4H, Estimat Glomerular Filtration Rate 27.2, Glucose Level 110H, Uric Acid 4.8, Calcium Level 8.1L, Phosphorus Level 3.0, Magnesium Level 1.7L, Total Bilirubin 0.2, Aspartate Amino Transf (AST/SGOT) 25, Alanine Aminotransferase (ALT/SGPT) 31, Alkaline Phosphatase 88, C-Reactive Protein, Quantitative 0.9, Total Protein 7.3, Albumin 2.8L, Globulin 4.5, Albumin/Globulin Ratio 0.6L Height (Feet): 6 Height (Inches): 0.00 Weight (Pounds): 180 General Appearance: no apparent distress Cardiovascular: normal rate Respiratory/Chest: decreased breath sounds Abdomen: soft, distended Darien Acosta MD Apr 25, 2020 16:06
--- NOTE | 2020-04-25 16:45 | Consultation ---
DATE OF CONSULTATION: 04/25/2020 CONSULTING PHYSICIAN: Joe Ramos MD. REASON FOR CONSULTATION: Bilateral hydronephrosis. HISTORY OF PRESENT ILLNESS: The patient is a 65-year-old male with history of schizophrenia and very poor historian, was admitted to the hospital with abnormal labs. The patient had elevation of BUN and creatinine at the nursing facility. Here in the hospital, he underwent a renal ultrasound that showed bilateral hydronephrosis and large volume of urine in the bladder with large postvoid residual. Yesterday, the patient had a Wayne catheter placed and 1500 mL of urine was his output. REVIEW OF SYMPTOMS: Not possible due to the patient's inability to communicate. Chart was carefully reviewed as well as his medication list. PHYSICAL EXAMINATION: GENERAL: He is currently afebrile. VITAL SIGNS: Stable. NEUROLOGICAL: As above. CARDIOVASCULAR: Regular rate and rhythm. ABDOMEN: Soft, nontender, and there is no evidence of distention. GENITOURINARY: Rectal exam showed firm and mildly enlarged prostate. Scrotal exam is normal. Wayne catheter is in place. Testicles are normal. LABORATORY DATA: Reviewed showing his sodium was 137, potassium 5.5, and creatinine 2.4, which is unchanged from yesterday 2.4. Hematology showed white count of 10.4, hematocrit is 34.9. ASSESSMENT AND PLAN: The patient has urinary retention, bilateral hydronephrosis, obstructive uropathy, and chronic renal failure. He will be followed by Nephrology in terms of the management of his chronic renal failure. He currently needs Wayne catheter and continue his medications for the prostate. If the patient will be discharged to nursing facility, he has to go there with a Wayne catheter and we can decide outpatient with chronic drainage situation can be established versus potential surgery. Joe Ramos M.D. DR: BENNY JOB#: [id number] CC:
--- NOTE | 2020-04-25 19:31 | NUR ---
NURSE HAND-OFF REPORT: Important Events on Shift: Patient Status: Diet: Pending Orders: Pending Results/Labs: Pending MD notification: Latest Vital Signs: Temperature 97.5 , Pulse 72 , B/P 118 /72 , Respiratory Rate 20 , O2 SAT 99 , Room Air, O2 Flow Rate . Vital Sign Comment: EKG Rhythm: Sinus Rhythm Rhythm change?: N MD Notified?: - MD Response: Latest Dawson Fall Score: 60 Fall Risk: High Risk Safety Measures: Call light Within Reach, Bed Alarm Zone 1, Side Rails Side Rails x3, Bed position Low and Locked. Fall Precautions: Yellow Socks Yellow Gown Door Sign Patient Fall Education Report given to . Pt is awake and stable, no stress noted. Endorsed plan of care.
--- NOTE | 2020-04-25 19:35 | NUR ---
NURSE NOTES: Pt. received from VANDANA Larose. Pt. AAOx2, breathing even and unlabored on room air, no indications of SOB, no complaints of pain. IV noted left hand 24g intact and patent, D5 1/2 NS at 75cc running. Condom cath intact and patent, draining urine well. Bed low and locked, side rails x3 up, bed alarm active, and call light in reach.
[2020-04-25 20:00] VITALS: BP 140/78
--- NOTE | 2020-04-25 22:00 | NUR ---
NURSE NOTES: IV inserted right hand 22g.
[2020-04-26] VITALS: BP 134/71
--- NOTE | 2020-04-26 03:45 | NUR ---
NURSE NOTES: IV removed from left hand. Pt. moved to 202-1. Pt. with difficulty sleeping overnight, talking to self. One attempt to get out of bed without use of call light, reoriented and redirected to bed safely. Pt. with x1 formed, moderate bowel movement overnight.
[2020-04-26 04:00] VITALS: BP 142/82
[2020-04-26] MEDS: Levothyroxine 25mcg tab ORAL SCH (06:11)
[2020-04-26] MEDS: D5 1/2NS 1,000 ML IV SCH ×2 (06:12→17:30)
--- NOTE | 2020-04-26 07:01 | NUR ---
NURSE HAND-OFF REPORT: Important Events on Shift:[]x1 BM, IV inserted right hand 22g, IV left hand removed, pt. transferred to room 202-1. Patient Status: []sleeping Diet: []renal puree moist Pending Orders: []na Pending Results/Labs:[]cmp cbc mg ph uric acid Pending MD notification:[] Latest Vital Signs: Temperature 97.5 , Pulse 84 , B/P 142 /82 , Respiratory Rate 20 , O2 SAT 97 , Room Air, O2 Flow Rate . Vital Sign Comment: []stable EKG Rhythm: Sinus Rhythm Rhythm change?: N MD Notified?: - MD Response: Latest Dawson Fall Score: 60 Fall Risk: High Risk Safety Measures: Call light Within Reach, Bed Alarm Zone 1, Side Rails Side Rails x3, Bed position Low and Locked. Fall Precautions: Yellow Socks Yellow Gown Door Sign Patient Fall Education Report given to [Maryanne RN
--- NOTE | 2020-04-26 07:27 | NUR ---
NURSE NOTES: Pt received from Donell. Pt in bed sleeping. Bed low and locked. Call light within reach. No distress noted. D5 1/2NS running at 75cc in Right hand.
[2020-04-26 07:29] LABS: BASOPHILS % (AUTO) 0.5 % (0.0-2.0); EOSINOPHILS % (AUTO) 9.4 % (0.0-3.0); HEMATOCRIT 31.3 % (42.0-52.0); HEMOGLOBIN 9.9 G/DL (14.2-18.0); LYMPHOCYTES % (AUTO) 13.6 % (20.0-45.0); MEAN CORPUSCULAR VOLUME 100 FL (80-99); MONOCYTES % (AUTO) 7.2 % (1.0-10.0); NEUTROPHILS % (AUTO) 69.3 % (45.0-75.0); PLATELET COUNT 264 K/UL (150-450); RED BLOOD COUNT 3.13 M/UL (4.70-6.10); RED CELL DISTRIBUTION WIDTH 12.1 % (11.6-14.8); WHITE BLOOD COUNT 12.6 K/UL (4.8-10.8)
[2020-04-26 07:59] LABS: ALBUMIN 2.6 G/DL (3.4-5.0); ALBUMIN/GLOBULIN RATIO 0.8 (1.0-2.7); BILIRUBIN,TOTAL 0.2 MG/DL (0.2-1.0); CALCIUM 7.6 MG/DL (8.5-10.1); CREATININE 1.9 MG/DL (0.55-1.30); PHOSPHORUS 2.5 MG/DL (2.5-4.9)
[2020-04-26 08:00] VITALS: BP 134/75
[2020-04-26] MEDS: Aspirin EC 81mg tab ORAL SCH (09:16)
[2020-04-26] MEDS: Tamsulosin 0.4mg cap ORAL SCH ×2 (09:16→17:30)
--- NOTE | 2020-04-26 10:32 | NUR ---
HAND-OFF: Report given to Chi Brown RN. pt in bed stable talking to himself. oriented x 1. 1st mag bag hung. Report given at bedside. belongings taken up with pt.
--- NOTE | 2020-04-26 10:34 | Nephrology Progress Note ---
Assessment/Plan Problem List: (1) VITALIY (acute kidney injury) (2) Hydronephrosis (3) Hyperkalemia (4) Anemia (5) Urinary outflow obstruction Assessment Acute renal failure Hyperkalemia on presentation to ER Most likely underlying chronic kidney failure Urinary outlet obstruction, as per ultrasound results Bilateral hydronephrosis Mild anemia History of schizophrenia Plan April 26: Renal parameters improving. Magnesium low. IV magnesium ordered. Continue same management and continue to monitor renal parameters April 25: Patient given Kayexalate for high potassium. Norvasc added for better blood pressure control. Continue to monitor renal parameters. April 24: As follow: Wayne catheter Urological evaluation Slow hydration Avoid nephrotoxic Monitor renal parameters Discussed with PMD and RN Kidney ultrasound: 1. Large volume of urine retention postvoid with mild bilateral hydronephrosis. 3. 1.2 cm cyst lower pole right kidney. No follow-up imaging necessary Subjective ROS Limited/Unobtainable: No Constitutional: Reports: malaise Objective Objective Last 24 Hour Vital Signs Date Time Temp Pulse Resp B/P (MAP) Pulse Ox O2 Delivery O2 Flow Rate FiO2 04/26/20 09:16 87 134/75 04/26/20 09:16 87 134/75 04/26/20 09:00 Room Air 04/26/20 08:00 87 04/26/20 08:00 98.6 88 18 134/75 (94) 95 04/26/20 04:00 84 04/26/20 04:00 97.5 84 20 142/82 (102) 97 04/26/20 00:00 85 04/26/20 00:00 97.7 85 20 134/71 (92) 96 04/25/20 21:00 Room Air 04/25/20 20:00 97.5 89 20 140/78 (98) 98 04/25/20 20:00 89 04/25/20 16:00 97.5 72 20 118/72 (87) 99 04/25/20 15:14 73 04/25/20 12:00 97.2 73 20 106/57 (73) 96 04/25/20 11:36 67 04/25/20 10:46 68 155/68 Intake and Output 04/25/20 04/26/20 19:00 07:00 Intake Total 1795 ml 825 ml Output Total 1200 ml 800 ml Balance 595 ml 25 ml Intake Oral 720 ml IV Total 1075 ml 825 ml Output Urine Total 1200 ml 800 ml # Bowel Movements 2 Laboratory Tests 04/26/20 06:29: White Blood Count 12.6H, Red Blood Count 3.13L, Hemoglobin 9.9L, Hematocrit 31.3L, Mean Corpuscular Volume 100H, Mean Corpuscular Hemoglobin 31.6H, Mean Corpuscular Hemoglobin Concent 31.6L, Red Cell Distribution Width 12.1, Platelet Count 264, Mean Platelet Volume 6.7, Neutrophils (%) (Auto) 69.3, Lymphocytes (%) (Auto) 13.6L, Monocytes (%) (Auto) 7.2, Eosinophils (%) (Auto) 9.4H, Basophils (%) (Auto) 0.5, Sodium Level 138, Potassium Level 4.0, Chloride Level 109H, Carbon Dioxide Level 21, Anion Gap 8, Blood Urea Nitrogen 38H, Creatinine 1.9H, Estimat Glomerular Filtration Rate 35.6, Glucose Level 100, Uric Acid 4.4, Calcium Level 7.6L, Phosphorus Level 2.5, Magnesium Level 1.4L, Total Bilirubin 0.2, Aspartate Amino Transf (AST/SGOT) 21, Alanine Aminotransferase (ALT/SGPT) 22, Alkaline Phosphatase 76, Total Protein 6.0L, Albumin 2.6L, Globulin 3.4, Albumin/Globulin Ratio 0.8L Height (Feet): 6 Height (Inches): 0.00 Weight (Pounds): 180 General Appearance: no apparent distress Cardiovascular: normal rate Respiratory/Chest: decreased breath sounds Abdomen: soft Genitourinary/Rectal: other - Wayne in place Darien Acosta MD Apr 26, 2020 10:34
--- NOTE | 2020-04-26 11:10 | NUR ---
NURSE NOTES: RECIEVED REPORT FROM VANDANA BUCKNER. PT ARRIVED ON FLOOR IN STABLE CONDITION. IN NO APPARENT DISTRESS AT THIST NAMRATA. MUMBLED SPEECH. PT CAN FOLLOW DIRECTION. DENIES PAIN/NAUSEA/VOMITING. IV ACCESS RIGHT HAND 22 RUNNING IV MAGNESIUM 1GM (FIRST OF FOUR BAGS). CALL LIGHT WITHIN REACH. WILL CONTINUE TO MONITOR.
--- NOTE | 2020-04-26 11:19 | NUR ---
NURSE NOTES: BELONGINGS CHECKED AT BEDSIDE AND ALL ACCOUNTED. ONLY CLOTHING NOTED.
[2020-04-26 12:00] VITALS: BP 133/81
--- NOTE | 2020-04-26 12:35 | NUR ---
NURSE NOTES: DR Helio GOODEN AT BEDSIDE AND MADE AWARE OF WBC 12.6 TODAY. NO NEW ORDERS RECEIVED.
--- NOTE | 2020-04-26 12:52 | Infectious Diseases Prog Note ---
Assessment/Plan Assessment/Plan IMPRESSION: Leukocytosis Urinary retention BPH, Hydronephrosis , Acute kidney injury on chronic kidney disease, Hyperkalemia that is corrected, Hypertension Hypothyroidism. Psychosis RECOMMENDATION: Observe off antibiotic F/U CBC Subjective ROS Limited/Unobtainable: Yes Constitutional: Reports: no symptoms Respiratory: Reports: no symptoms Gastrointestinal/Abdominal: Reports: no symptoms Genitourinary: Reports: no symptoms Allergies: Coded Allergies: No Known Allergies (Unverified , 04/23/20) Objective Last 24 Hour Vital Signs Date Time Temp Pulse Resp B/P (MAP) Pulse Ox O2 Delivery O2 Flow Rate FiO2 04/26/20 12:00 97.9 73 20 133/81 (98) 98 04/26/20 09:16 87 134/75 04/26/20 09:16 87 134/75 04/26/20 09:00 Room Air 04/26/20 08:00 87 04/26/20 08:00 98.6 88 18 134/75 (94) 95 04/26/20 04:00 84 04/26/20 04:00 97.5 84 20 142/82 (102) 97 04/26/20 00:00 85 04/26/20 00:00 97.7 85 20 134/71 (92) 96 04/25/20 21:00 Room Air 04/25/20 20:00 97.5 89 20 140/78 (98) 98 04/25/20 20:00 89 04/25/20 16:00 97.5 72 20 118/72 (87) 99 04/25/20 15:14 73 Height (Feet): 6 Height (Inches): 0.00 Weight (Pounds): 180 HEENT: mucous membranes moist Respiratory/Chest: lungs clear Cardiovascular: normal rate Abdomen: soft, non tender Genitourinary: other - Wayne catheter Extremities: no edema Neurologic/Psychiatric: alert, responsive Microbiology Date/Time Source Procedure Growth Status 04/23/20 20:50 Nasopharynx SARS-CoV-2 RdRp Gene Assay - Final Complete 04/23/20 18:50 Rectum - Final NO CARBAPENEM-RESISTANT ENTEROBACTERI... Complete 04/23/20 18:50 Rectum VRE Culture - Final NO VANCOMYCIN RESISTANT ENTEROCOCCUS ... Complete Laboratory Tests Test 04/26/20 06:29 White Blood Count 12.6 K/UL (4.8-10.8) H Red Blood Count 3.13 M/UL (4.70-6.10) L Hemoglobin 9.9 G/DL (14.2-18.0) L Hematocrit 31.3 % (42.0-52.0) L Mean Corpuscular Volume 100 FL (80-99) H Mean Corpuscular Hemoglobin 31.6 PG (27.0-31.0) H Mean Corpuscular Hemoglobin Concent 31.6 G/DL (32.0-36.0) L Red Cell Distribution Width 12.1 % (11.6-14.8) Platelet Count 264 K/UL (150-450) Mean Platelet Volume 6.7 FL (6.5-10.1) Neutrophils (%) (Auto) 69.3 % (45.0-75.0) Lymphocytes (%) (Auto) 13.6 % (20.0-45.0) L Monocytes (%) (Auto) 7.2 % (1.0-10.0) Eosinophils (%) (Auto) 9.4 % (0.0-3.0) H Basophils (%) (Auto) 0.5 % (0.0-2.0) Sodium Level 138 MMOL/L (136-145) Potassium Level 4.0 MMOL/L (3.5-5.1) Chloride Level 109 MMOL/L (98-107) H Carbon Dioxide Level 21 MMOL/L (21-32) Anion Gap 8 mmol/L (5-15) Blood Urea Nitrogen 38 mg/dL (7-18) H Creatinine 1.9 MG/DL (0.55-1.30) H Estimat Glomerular Filtration Rate 35.6 mL/min (>60) Glucose Level 100 MG/DL (74-106) Uric Acid 4.4 MG/DL (2.6-7.2) Calcium Level 7.6 MG/DL (8.5-10.1) L Phosphorus Level 2.5 MG/DL (2.5-4.9) Magnesium Level 1.4 MG/DL (1.8-2.4) L Total Bilirubin 0.2 MG/DL (0.2-1.0) Aspartate Amino Transf (AST/SGOT) 21 U/L (15-37) Alanine Aminotransferase (ALT/SGPT) 22 U/L (12-78) Alkaline Phosphatase 76 U/L (46-116) Total Protein 6.0 G/DL (6.4-8.2) L Albumin 2.6 G/DL (3.4-5.0) L Globulin 3.4 g/dL Albumin/Globulin Ratio 0.8 (1.0-2.7) L Current Medications Medications (Trade) Dose Ordered Sig/Eulalia Route PRN Reason Start Time Stop Time Status Last Admin Dose Admin Acetaminophen (Tylenol) 325 mg Q4H PRN ORAL Mild Pain (Pain Scale 1-3) 04/23/20 20:00 05/23/20 19:59 Acetaminophen (Tylenol) 650 mg Q4H PRN ORAL Mild Pain (Pain Scale 1-3) 04/23/20 23:00 05/23/20 22:59 Amlodipine Besylate (Norvasc) 5 mg DAILY ORAL 04/26/20 09:00 05/26/20 08:59 04/26/20 09:16 Aspirin (Ecotrin) 81 mg DAILY ORAL 04/24/20 09:00 06/08/20 08:59 04/26/20 09:16 Barium Sulfate (Varibar Honey) 250 ml NOW PRN MC RAD 04/24/20 08:15 04/27/20 08:04 Barium Sulfate (Varibar Goehner) 240 ml NOW PRN MC RAD 04/24/20 08:15 04/27/20 08:04 Barium Sulfate (Varibar Pudding) 230 ml NOW PRN MC RAD 04/24/20 08:15 04/27/20 08:04 Barium Sulfate (Varibar Thin Liquid powder) 148 gm NOW PRN MC RAD 04/24/20 08:15 04/27/20 08:04 Dextrose/Sodium Chloride 1,000 ml @ 75 mls/hr [id number] IV 04/24/20 15:15 05/24/20 15:14 04/26/20 06:12 Levothyroxine Sodium (Synthroid) 25 mcg ACBREAKFAST ORAL 04/24/20 06:30 05/24/20 06:29 04/26/20 06:11 Magnesium Sulfate 100 ml @ 100 mls/hr Q1H IVPB 04/26/20 10:00 04/26/20 13:59 04/26/20 12:09 Metoprolol Tartrate (Lopressor) 25 mg EVERY 12 HOURS ORAL 04/26/20 09:00 07/22/20 20:59 04/26/20 09:16 Tamsulosin HCl (Flomax) 0.4 mg BID ORAL 04/24/20 15:03 05/24/20 15:02 04/26/20 09:16 Supa Grey MD Apr 26, 2020 12:52
--- NOTE | 2020-04-26 14:25 | NUR ---
CASE MANAGEMENT:REVIEW 04/26/20 SI: BILATERAL HYDRONEPHROSIS OBSTRUCTIVE UROPATHY 97.9 73 20 133/81 98% ON RA WBC+12.6 BUN+38 CR+1.9 MAG-1.4 IS: LOPRESSOR PO Q12 NORVASC PO QD IVF@75/HR FLOMAX PO BID ASA PO QD : TRANSFER TO MED/SURG
[2020-04-26 16:00] VITALS: BP 130/77
[2020-04-26] MEDS ORDERED: D5 1/2NS 1000ml IV ONE (16:01)
--- NOTE | 2020-04-26 17:08 | General Progress Note ---
Subjective ROS Limited/Unobtainable: Yes Allergies: Coded Allergies: No Known Allergies (Unverified , 04/23/20) Objective Last 24 Hour Vital Signs Date Time Temp Pulse Resp B/P (MAP) Pulse Ox O2 Delivery O2 Flow Rate FiO2 04/26/20 16:00 97.9 82 18 130/77 (94) 96 04/26/20 12:00 97.9 73 20 133/81 (98) 98 04/26/20 09:16 87 134/75 04/26/20 09:16 87 134/75 04/26/20 09:00 Room Air 04/26/20 08:00 87 04/26/20 08:00 98.6 88 18 134/75 (94) 95 04/26/20 04:00 84 04/26/20 04:00 97.5 84 20 142/82 (102) 97 04/26/20 00:00 85 04/26/20 00:00 97.7 85 20 134/71 (92) 96 04/25/20 21:00 Room Air 04/25/20 20:00 97.5 89 20 140/78 (98) 98 04/25/20 20:00 89 Intake and Output 04/25/20 04/26/20 19:00 07:00 Intake Total 1795 ml 825 ml Output Total 1200 ml 800 ml Balance 595 ml 25 ml Intake Oral 720 ml IV Total 1075 ml 825 ml Output Urine Total 1200 ml 800 ml # Bowel Movements 2 Laboratory Tests 04/26/20 06:29: White Blood Count 12.6H, Red Blood Count 3.13L, Hemoglobin 9.9L, Hematocrit 31.3L, Mean Corpuscular Volume 100H, Mean Corpuscular Hemoglobin 31.6H, Mean Corpuscular Hemoglobin Concent 31.6L, Red Cell Distribution Width 12.1, Platelet Count 264, Mean Platelet Volume 6.7, Neutrophils (%) (Auto) 69.3, Lymphocytes (%) (Auto) 13.6L, Monocytes (%) (Auto) 7.2, Eosinophils (%) (Auto) 9.4H, Basophils (%) (Auto) 0.5, Sodium Level 138, Potassium Level 4.0, Chloride Level 109H, Carbon Dioxide Level 21, Anion Gap 8, Blood Urea Nitrogen 38H, Creatinine 1.9H, Estimat Glomerular Filtration Rate 35.6, Glucose Level 100, Uric Acid 4.4, Calcium Level 7.6L, Phosphorus Level 2.5, Magnesium Level 1.4L, Total Bilirubin 0.2, Aspartate Amino Transf (AST/SGOT) 21, Alanine Aminotransferase (ALT/SGPT) 22, Alkaline Phosphatase 76, Total Protein 6.0L, Albumin 2.6L, Globulin 3.4, Albumin/Globulin Ratio 0.8L Height (Feet): 6 Height (Inches): 0.00 Weight (Pounds): 180 Assessment/Plan Problem List: (1) Hyperkalemia ICD Codes: E87.5 - Hyperkalemia SNOMED: 78430944, 6442048 (2) VITALIY (acute kidney injury) ICD Codes: N17.9 - Acute kidney failure, unspecified SNOMED: 55447927, 3002525 (3) Hydronephrosis ICD Codes: N13.30 - Unspecified hydronephrosis SNOMED: 09328288 Status: progressing Assessment/Plan: worsening renal failure consulted dr almaraz for bilat hydro and mora diaylsis per renal reviewed chart and labs check Jorge Macdonald MD Apr 26, 2020 17:08
--- NOTE | 2020-04-26 19:23 | NUR ---
NURSE HAND-OFF: Important Events on Shift:NO SIGNIFICANT EVENTS. PT IS AMBULATORY WITH MODERATE ASSIST. HIGH FALL RISK. BED ALARM MUST ALWAYS BE ON. ENDORSED TO VANDANA MARTIN. Patient Status: STABLE Diet: RENAL - PUREED MOIST Pending Orders: N/A Pending Results/Labs:N/A Pending MD notification:N/A Latest Vital Signs: Temperature 97.9 , Pulse 82 , B/P 130 /77 , Respiratory Rate 18 , O2 SAT 96 , Room Air, O2 Flow Rate . Vital Sign Comment: STABLE Latest Dawson Fall Score: 60 Fall Risk: High Risk Safety Measures: Call light Within Reach, Bed Alarm Zone 1, Side Rails Side Rails x3, Bed position Low and Locked. Fall Precautions: Yellow Socks Yellow Gown Door Sign Patient Fall Education Report given to VANDANA MARTIN.
--- NOTE | 2020-04-26 19:24 | NUR ---
NURSE NOTES: Received a pt awake,A&O1, and verbal. Pt has no sob,fever,pain and cough at the moment. Iv is intact and asymptomatic. pt has Wayne cath and draining well. Bed is in the lowest position ,locked,alarm on, and call light within reach.
[2020-04-26 20:00] VITALS: BP 152/90
[2020-04-27] VITALS: BP 145/86
[2020-04-27 04:00] VITALS: BP 142/72
[2020-04-27] MEDS: Levothyroxine 25mcg tab ORAL SCH (05:45)
--- NOTE | 2020-04-27 06:37 | NUR ---
NURSE HAND-OFF: Important Events on Shift:na Patient Status: stable Diet: renal Pending Orders: Pending Results/Labs:cbc,cmp,mag,phos Pending MD notification: Latest Vital Signs: Temperature 98.3 , Pulse 78 , B/P 142 /72 , Respiratory Rate 20 , O2 SAT 98 , Room Air, O2 Flow Rate . Vital Sign Comment: Latest Dawson Fall Score: 60 Fall Risk: High Risk Safety Measures: Call light Within Reach, Bed Alarm Zone 1, Side Rails Side Rails x3, Bed position Low and Locked. Fall Precautions: Patient Fall Education.
--- NOTE | 2020-04-27 07:25 | NUR ---
HAND-OFF: Report given to VANDANA Kumar.
--- NOTE | 2020-04-27 07:43 | NUR ---
NURSE NOTES: Received report from VANDANA Govea. Received a pt awake,A&O2, and verbal. Pt has no sob,fever,pain and cough at the moment. Patient has SCD at bedside but refuses it at this time, will put on later. Iv is intact and asymptomatic. pt has Wayne cath and draining well. RN educated patient to use call light before ambulating for assistance. Bed is in the lowest position ,locked,alarm on, and call light within reach.
[2020-04-27 08:31] VITALS: BP 138/69
[2020-04-27] MEDS: Tamsulosin 0.4mg cap ORAL SCH ×2 (08:35→17:19)
[2020-04-27] MEDS: Aspirin EC 81mg tab ORAL SCH (08:35)
--- NOTE | 2020-04-27 09:52 | Nephrology Progress Note ---
Assessment/Plan Problem List: (1) VITALIY (acute kidney injury) (2) Hydronephrosis (3) Hyperkalemia (4) Anemia (5) Urinary outflow obstruction Assessment Acute renal failure Hyperkalemia on presentation to ER Most likely underlying chronic kidney failure Urinary outlet obstruction, as per ultrasound results Bilateral hydronephrosis Mild anemia History of schizophrenia Plan April 27: Patient refused blood draw today. Need chemistry panel to assess improvement of renal status. May need psych evaluation in view of history of schizophrenia. April 26: Renal parameters improving. Magnesium low. IV magnesium ordered. Continue same management and continue to monitor renal parameters April 25: Patient given Kayexalate for high potassium. Norvasc added for better blood pressure control. Continue to monitor renal parameters. April 24: As follow: Wayne catheter Urological evaluation Slow hydration Avoid nephrotoxic Monitor renal parameters Discussed with PMD and RN Kidney ultrasound: 1. Large volume of urine retention postvoid with mild bilateral hydronephrosis. 3. 1.2 cm cyst lower pole right kidney. No follow-up imaging necessary Subjective ROS Limited/Unobtainable: No Constitutional: Reports: malaise Objective Objective Last 24 Hour Vital Signs Date Time Temp Pulse Resp B/P (MAP) Pulse Ox O2 Delivery O2 Flow Rate FiO2 04/27/20 09:00 Room Air 04/27/20 08:35 81 138/69 04/27/20 08:35 81 138/69 04/27/20 08:31 98.2 81 19 138/69 (92) 99 04/27/20 04:00 98.3 78 20 142/72 (95) 98 04/27/20 00:00 98.2 86 18 145/86 (105) 97 04/26/20 21:34 88 152/90 04/26/20 21:00 Room Air 04/26/20 20:00 98.4 88 19 152/90 (110) 96 04/26/20 16:00 97.9 82 18 130/77 (94) 96 04/26/20 12:00 97.9 73 20 133/81 (98) 98 Intake and Output 04/26/20 04/27/20 19:00 07:00 Intake Total 1245 ml 955 ml Output Total 1600 ml 1400 ml Balance -355 ml -445 ml Intake Oral 620 ml 200 ml IV Total 625 ml 755 ml Output Urine Total 1600 ml 1400 ml Labs today not drawn yet. Patient refuses per RN Height (Feet): 6 Height (Inches): 0.00 Weight (Pounds): 180 General Appearance: no apparent distress Cardiovascular: normal rate Respiratory/Chest: decreased breath sounds Abdomen: soft Darien Acosta MD Apr 27, 2020 09:52
[2020-04-27] MEDS: D5 1/2NS 1,000 ML IV SCH ×2 (10:03→23:15)
[2020-04-27 10:08] LABS: BASOPHILS % (AUTO) 0.5 % (0.0-2.0); EOSINOPHILS % (AUTO) 10.3 % (0.0-3.0); HEMATOCRIT 31.3 % (42.0-52.0); LYMPHOCYTES % (AUTO) 10.5 % (20.0-45.0); MEAN CORPUSCULAR VOLUME 98 FL (80-99); MONOCYTES % (AUTO) 6.8 % (1.0-10.0); NEUTROPHILS % (AUTO) 71.9 % (45.0-75.0); PLATELET COUNT 270 K/UL (150-450); RED CELL DISTRIBUTION WIDTH 12.4 % (11.6-14.8); WHITE BLOOD COUNT 13.9 K/UL (4.8-10.8)
[2020-04-27 10:23] LABS: ALBUMIN 2.5 G/DL (3.4-5.0); ALBUMIN/GLOBULIN RATIO 0.6 (1.0-2.7); BILIRUBIN,TOTAL 0.3 MG/DL (0.2-1.0); CALCIUM 7.9 MG/DL (8.5-10.1); CREATININE 1.9 MG/DL (0.55-1.30); PHOSPHORUS 2.8 MG/DL (2.5-4.9); POTASSIUM 4.8 MMOL/L (3.5-5.1)
--- NOTE | 2020-04-27 10:30 | NUR ---
RD ASSESSMENT & RECOMMENDATIONS SEE CARE ACTIVITY FOR COMPLETE ASSESSMENT DAILY ESTIMATED NEEDS: Needs based on Underweight, renal 54.8kg 30-35 kcals/kg [id number] total kcals 1-1.5 g protein/kg 55-82 g total protein Fluid per MD NUTRITION DIAGNOSIS: Increased kcal needs r/t underweight status as evidenced by BMI underweight per guidelines, at est 73% of ideal body weight w/ generalized wasting, BL LE moderate wasting. CURRENT DIET: renal diet puree PO DIET RECOMMENDATIONS: renal diet, texture per INFORMATION SYSTEMS PROJECT MANAGER ADDITIONAL RECOMMENDATIONS: 1) Add NEPRO 1 tetra BID 2) Bed scale wt: 54.8kg vs EMR wt: 81.7kg Obtain accurate wt, pt appears underweight 3) Monitor need for HD 4) Encourage continued good po intake, add snacks as tolerated
[2020-04-27 12:00] VITALS: BP 133/72
--- NOTE | 2020-04-27 12:29 | Infectious Diseases Prog Note ---
Assessment/Plan Assessment/Plan IMPRESSION: Leukocytosis Urinary retention BPH, Hydronephrosis , Acute kidney injury on chronic kidney disease, Hyperkalemia that is corrected, Hypertension Hypothyroidism. Psychosis RECOMMENDATION: Start on PO Levaquin F/U CBC Subjective ROS Limited/Unobtainable: Yes Constitutional: Denies: fever Allergies: Coded Allergies: No Known Allergies (Unverified , 04/23/20) Objective Last 24 Hour Vital Signs Date Time Temp Pulse Resp B/P (MAP) Pulse Ox O2 Delivery O2 Flow Rate FiO2 04/27/20 12:00 97.6 73 18 133/72 (92) 98 04/27/20 09:00 Room Air 04/27/20 08:35 81 138/69 04/27/20 08:35 81 138/69 04/27/20 08:31 98.2 81 19 138/69 (92) 99 04/27/20 04:00 98.3 78 20 142/72 (95) 98 04/27/20 00:00 98.2 86 18 145/86 (105) 97 04/26/20 21:34 88 152/90 04/26/20 21:00 Room Air 04/26/20 20:00 98.4 88 19 152/90 (110) 96 04/26/20 16:00 97.9 82 18 130/77 (94) 96 Height (Feet): 6 Height (Inches): 0.00 Weight (Pounds): 180 HEENT: mucous membranes moist Respiratory/Chest: lungs clear Cardiovascular: normal rate Abdomen: soft, non tender Extremities: no edema Neurologic/Psychiatric: other - sleeping Laboratory Tests Test 04/27/20 10:00 White Blood Count 13.9 K/UL (4.8-10.8) H Red Blood Count 3.20 M/UL (4.70-6.10) L Hemoglobin 10.0 G/DL (14.2-18.0) L Hematocrit 31.3 % (42.0-52.0) L Mean Corpuscular Volume 98 FL (80-99) Mean Corpuscular Hemoglobin 31.4 PG (27.0-31.0) H Mean Corpuscular Hemoglobin Concent 32.1 G/DL (32.0-36.0) Red Cell Distribution Width 12.4 % (11.6-14.8) Platelet Count 270 K/UL (150-450) Mean Platelet Volume 6.2 FL (6.5-10.1) L Neutrophils (%) (Auto) 71.9 % (45.0-75.0) Lymphocytes (%) (Auto) 10.5 % (20.0-45.0) L Monocytes (%) (Auto) 6.8 % (1.0-10.0) Eosinophils (%) (Auto) 10.3 % (0.0-3.0) H Basophils (%) (Auto) 0.5 % (0.0-2.0) Sodium Level 139 MMOL/L (136-145) Potassium Level 4.8 MMOL/L (3.5-5.1) Chloride Level 110 MMOL/L (98-107) H Carbon Dioxide Level 24 MMOL/L (21-32) Anion Gap 5 mmol/L (5-15) Blood Urea Nitrogen 29 mg/dL (7-18) H Creatinine 1.9 MG/DL (0.55-1.30) H Estimat Glomerular Filtration Rate 35.6 mL/min (>60) Glucose Level 95 MG/DL (74-106) Calcium Level 7.9 MG/DL (8.5-10.1) L Phosphorus Level 2.8 MG/DL (2.5-4.9) Magnesium Level 2.4 MG/DL (1.8-2.4) Total Bilirubin 0.3 MG/DL (0.2-1.0) Aspartate Amino Transf (AST/SGOT) 25 U/L (15-37) Alanine Aminotransferase (ALT/SGPT) 32 U/L (12-78) Alkaline Phosphatase 84 U/L (46-116) Total Protein 6.8 G/DL (6.4-8.2) Albumin 2.5 G/DL (3.4-5.0) L Globulin 4.3 g/dL Albumin/Globulin Ratio 0.6 (1.0-2.7) L Current Medications Medications (Trade) Dose Ordered Sig/Eulalia Route PRN Reason Start Time Stop Time Status Last Admin Dose Admin Acetaminophen (Tylenol) 325 mg Q4H PRN ORAL Mild Pain (Pain Scale 1-3) 04/23/20 20:00 05/23/20 19:59 Acetaminophen (Tylenol) 650 mg Q4H PRN ORAL Mild Pain (Pain Scale 1-3) 04/23/20 23:00 05/23/20 22:59 Amlodipine Besylate (Norvasc) 5 mg DAILY ORAL 04/26/20 09:00 05/26/20 08:59 04/27/20 08:35 Aspirin (Ecotrin) 81 mg DAILY ORAL 04/24/20 09:00 06/08/20 08:59 04/27/20 08:35 Dextrose/Sodium Chloride 1,000 ml @ 75 mls/hr [id number] IV 04/24/20 15:15 05/24/20 15:14 04/27/20 10:03 Levothyroxine Sodium (Synthroid) 25 mcg ACBREAKFAST ORAL 04/24/20 06:30 05/24/20 06:29 04/27/20 05:45 Metoprolol Tartrate (Lopressor) 25 mg EVERY 12 HOURS ORAL 04/26/20 09:00 07/22/20 20:59 04/27/20 08:35 Tamsulosin HCl (Flomax) 0.4 mg BID ORAL 04/24/20 15:03 05/24/20 15:02 04/27/20 08:35 Supa Grey MD Apr 27, 2020 12:29
[2020-04-27 16:00] VITALS: BP 129/69
--- NOTE | 2020-04-27 17:02 | NUR ---
CASE MANAGEMENT:REVIEW SI;HYDRONEPHROSIS. VITALIY. 98.3 81 20 142/72 98% ON RA WBC 13.9 H/H 10./31.3 BUN 29 CR 1.9 CA 7.9 ALB 2.5 IS;LEVAQUIN PO QD LOPRESSOR PO Q12 NORVASC PO QD IVF D5NS @ 75 ML/HR ASA PO QS FLOMAX PO BID MED SURG STATUS DCP;FROM [facility]
--- NOTE | 2020-04-27 19:25 | NUR ---
HAND-OFF: Report given to VANDANA Doshi.
--- NOTE | 2020-04-27 19:30 | NUR ---
NURSE NOTES: RECEIVED PATIENT LYING IN BED, EYES OPEN, VERBALLY RESPONSIVE, ORIENTED TO SELF/PLACE, FORGETFUL/CONFUSED AT TIMES, DENIES PAIN. NO SIGNS AND SYMPTOMS OF ACUTE CARDIO RESPIRATORY DISTRESS/SHORTNESS OF BREATH, NO PERIPHERAL EDEMA NOTED. ABDOMEN SOFT/NON DISTENDED/AUDIBLE BOWEL SOUNDS, NO REPORT OF N/V/D. BALLESTEROS CATHETER INTACT/PATENT, DRAINING YELLOW URINE VIA GRAVITY, NO SEDEMENT NOTED, DRAINAGE BAG POSITIONED BELOW LEVEL OF WAIST TO PREVENT URINE BACKFLOW. SIDE RAILS UP X3/BED IN LOWEST POSITION FOR SAFETY, CALL LIGHT WITHIN REACH, FREQUENT ROUNDING FOR SAFETY/NEEDS. CONTINUE WITH CURRENT PLAN OF CARE. NAD.
[2020-04-27 20:00] VITALS: BP 139/75
--- NOTE | 2020-04-27 20:06 | General Progress Note ---
Subjective ROS Limited/Unobtainable: Yes Allergies: Coded Allergies: No Known Allergies (Unverified , 04/23/20) Objective Last 24 Hour Vital Signs Date Time Temp Pulse Resp B/P (MAP) Pulse Ox O2 Delivery O2 Flow Rate FiO2 04/27/20 16:00 96.8 79 19 129/69 (89) 98 04/27/20 12:00 97.6 73 18 133/72 (92) 98 04/27/20 09:00 Room Air 04/27/20 08:35 81 138/69 04/27/20 08:35 81 138/69 04/27/20 08:31 98.2 81 19 138/69 (92) 99 04/27/20 04:00 98.3 78 20 142/72 (95) 98 04/27/20 00:00 98.2 86 18 145/86 (105) 97 04/26/20 21:34 88 152/90 04/26/20 21:00 Room Air Intake and Output 04/26/20 04/27/20 19:00 07:00 Intake Total 1245 ml 955 ml Output Total 1600 ml 1400 ml Balance -355 ml -445 ml Intake Oral 620 ml 200 ml IV Total 625 ml 755 ml Output Urine Total 1600 ml 1400 ml Laboratory Tests 04/27/20 10:00: White Blood Count 13.9H, Red Blood Count 3.20L, Hemoglobin 10.0L, Hematocrit 31.3L, Mean Corpuscular Volume 98, Mean Corpuscular Hemoglobin 31.4H, Mean Corpuscular Hemoglobin Concent 32.1, Red Cell Distribution Width 12.4, Platelet Count 270, Mean Platelet Volume 6.2L, Neutrophils (%) (Auto) 71.9, Lymphocytes (%) (Auto) 10.5L, Monocytes (%) (Auto) 6.8, Eosinophils (%) (Auto) 10.3H, Basophils (%) (Auto) 0.5, Sodium Level 139, Potassium Level 4.8, Chloride Level 110H, Carbon Dioxide Level 24, Anion Gap 5, Blood Urea Nitrogen 29H, Creatinine 1.9H, Estimat Glomerular Filtration Rate 35.6, Glucose Level 95, Calcium Level 7.9L, Phosphorus Level 2.8, Magnesium Level 2.4, Total Bilirubin 0.3, Aspartate Amino Transf (AST/SGOT) 25, Alanine Aminotransferase (ALT/SGPT) 32, Alkaline Phosphatase 84, Total Protein 6.8, Albumin 2.5L, Globulin 4.3, Albumin/Globulin Ratio 0.6L Height (Feet): 6 Height (Inches): 0.00 Weight (Pounds): 180 Assessment/Plan Problem List: (1) Hyperkalemia ICD Codes: E87.5 - Hyperkalemia SNOMED: 12916753, 8337784 (2) VITALIY (acute kidney injury) ICD Codes: N17.9 - Acute kidney failure, unspecified SNOMED: 34579471, 0302471 (3) Hydronephrosis ICD Codes: N13.30 - Unspecified hydronephrosis SNOMED: 72450770 Status: progressing Assessment/Plan: renal failure is improving consulted dr almaraz for abrahan andrea and Jorge Perez MD Apr 27, 2020 20:06
[2020-04-28] VITALS: BP 134/79
[2020-04-28 04:00] VITALS: BP 141/82
--- NOTE | 2020-04-28 06:19 | NUR ---
NURSE NOTES: RESTED WELL, NO SIGNIFICANT CHANGE OF CONDITION NOTED THROUGHOUT THE NIGHT. SAFETY MAINTAINED. NAD.
[2020-04-28] MEDS: Levothyroxine 25mcg tab ORAL SCH (06:33)
--- NOTE | 2020-04-28 07:30 | NUR ---
NURSE NOTES: RECEIVED PATIENT LYING IN BED. ABLE TO VERBALIZE NEEDS. A/A/OX4, APPEARS TO BE IRRITABLE. DENIES PAIN. NO SIGNS AND SYMPTOMS OF ACUTE CARDIO-RESPIRATORY DISTRESS/SHORTNESS OF BREATH, NO PERIPHERAL EDEMA NOTED. ABDOMEN SOFT/NON DISTENDED/AUDIBLE BOWEL SOUNDS, NO REPORT OF N/V/D. BALLESTEROS CATHETER INTACT/PATENT, DRAINING YELLOW URINE VIA GRAVITY. SIDERAILS UP X3. BED IN LOWEST POSITION FOR SAFETY, CALL LIGHT WITHIN REACH, CONTINUE WITH CURRENT PLAN OF CARE.
--- NOTE | 2020-04-28 07:59 | NUR ---
NURSE HAND-OFF: Important Events on Shift:[UNEVENTFUL NIGHT] Patient Status: [STABLE] Diet: [RENAL PUREE MOIST] Pending Orders: [N/A] Pending Results/Labs:N/A Pending MD notification:N/A Latest Vital Signs: Temperature 98.6 , Pulse 86 , B/P 141 /82 , Respiratory Rate 18 , O2 SAT 99 , Room Air, O2 Flow Rate . Vital Sign Comment: STABLE, AFEBRILE Latest Dawson Fall Score: 60 Fall Risk: High Risk Safety Measures: Call light Within Reach, Bed Alarm Zone 1, Side Rails Side Rails x3, Bed position Low and Locked. Fall Precautions: Patient Fall Education Report given to ANGELICA SANDERSON.
[2020-04-28] MEDS: Tamsulosin 0.4mg cap ORAL SCH ×2 (08:06→17:27)
[2020-04-28] MEDS: Aspirin EC 81mg tab ORAL SCH (08:06)
[2020-04-28 08:08] VITALS: BP 117/69
[2020-04-28] MEDS: D5 1/2NS 1,000 ML IV SCH (08:08)
--- NOTE | 2020-04-28 10:30 | NUR ---
NURSE NOTES: PATIENT HAS GENERALIZED SELF INFLICTED SCRATCHES. SKIN ASSESSMENT RENDERED. SACRAL IS INTACT. OPTIFOAM PLACED PROPHYLAXIS. WILL CONT TO MONITOR.
--- NOTE | 2020-04-28 12:03 | Nephrology Progress Note ---
Assessment/Plan Problem List: (1) VITALIY (acute kidney injury) (2) Hydronephrosis (3) Hyperkalemia (4) Anemia (5) Urinary outflow obstruction Assessment Acute renal failure Hyperkalemia on presentation to ER Most likely underlying chronic kidney failure Urinary outlet obstruction, as per ultrasound results Bilateral hydronephrosis Mild anemia History of schizophrenia Plan April 28: No labs drawn today. Will check lab tomorrow. Continue current management. Medication reviewed. April 27: Patient refused blood draw today. Need chemistry panel to assess improvement of renal status. May need psych evaluation in view of history of schizophrenia. April 26: Renal parameters improving. Magnesium low. IV magnesium ordered. Continue same management and continue to monitor renal parameters April 25: Patient given Kayexalate for high potassium. Norvasc added for better blood pressure control. Continue to monitor renal parameters. April 24: As follow: Wayne catheter Urological evaluation Slow hydration Avoid nephrotoxic Monitor renal parameters Discussed with PMD and RN Kidney ultrasound: 1. Large volume of urine retention postvoid with mild bilateral hydronephrosis. 3. 1.2 cm cyst lower pole right kidney. No follow-up imaging necessary Subjective ROS Limited/Unobtainable: No Constitutional: Reports: malaise Objective Objective Last 24 Hour Vital Signs Date Time Temp Pulse Resp B/P (MAP) Pulse Ox O2 Delivery O2 Flow Rate FiO2 04/28/20 09:00 Room Air 04/28/20 08:08 97.9 76 18 117/69 (85) 99 04/28/20 08:07 76 117/69 04/28/20 08:07 76 117/69 04/28/20 04:00 98.6 86 18 141/82 (101) 99 04/28/20 00:00 97.9 79 18 134/79 (97) 97 04/27/20 21:03 85 123/89 04/27/20 21:00 Room Air 04/27/20 20:00 97.3 82 18 139/75 (96) 96 04/27/20 16:00 96.8 79 19 129/69 (89) 98 Intake and Output 04/27/20 04/28/20 19:00 07:00 Intake Total 400 ml 557 ml Output Total 900 ml 750 ml Balance -500 ml -193 ml Intake Oral 400 ml 482 ml IV Total 75 ml Output Urine Total 900 ml 750 ml # Bowel Movements 1 No labs drawn today Height (Feet): 6 Height (Inches): 0.00 Weight (Pounds): 180 General Appearance: no apparent distress Cardiovascular: normal rate Respiratory/Chest: lungs clear Abdomen: soft Objective No change Darien Acosta MD Apr 28, 2020 12:03
[2020-04-28 12:04] VITALS: BP 104/64
--- NOTE | 2020-04-28 13:50 | Infectious Diseases Prog Note ---
Assessment/Plan Assessment/Plan IMPRESSION: Leukocytosis Urinary retention BPH, Hydronephrosis , Acute kidney injury on chronic kidney disease, Hyperkalemia that is corrected, Hypertension Hypothyroidism. Psychosis RECOMMENDATION: Continue PO Levaquin F/U CBC Subjective ROS Limited/Unobtainable: Yes Constitutional: Reports: no symptoms Respiratory: Reports: no symptoms Gastrointestinal/Abdominal: Reports: no symptoms Genitourinary: Reports: no symptoms Allergies: Coded Allergies: No Known Allergies (Unverified , 04/23/20) Objective Last 24 Hour Vital Signs Date Time Temp Pulse Resp B/P (MAP) Pulse Ox O2 Delivery O2 Flow Rate FiO2 04/28/20 12:04 98.2 77 18 104/64 (77) 93 04/28/20 09:00 Room Air 04/28/20 08:08 97.9 76 18 117/69 (85) 99 04/28/20 08:07 76 117/69 04/28/20 08:07 76 117/69 04/28/20 04:00 98.6 86 18 141/82 (101) 99 04/28/20 00:00 97.9 79 18 134/79 (97) 97 04/27/20 21:03 85 123/89 04/27/20 21:00 Room Air 04/27/20 20:00 97.3 82 18 139/75 (96) 96 04/27/20 16:00 96.8 79 19 129/69 (89) 98 Height (Feet): 6 Height (Inches): 0.00 Weight (Pounds): 180 General Appearance: no acute distress HEENT: mucous membranes moist Respiratory/Chest: lungs clear Cardiovascular: normal rate Abdomen: soft, non tender Genitourinary: other - Wayne catheter Extremities: no edema Neurologic/Psychiatric: alert, responsive Current Medications Medications (Trade) Dose Ordered Sig/Eulalia Route PRN Reason Start Time Stop Time Status Last Admin Dose Admin Acetaminophen (Tylenol) 325 mg Q4H PRN ORAL Mild Pain (Pain Scale 1-3) 04/23/20 20:00 05/23/20 19:59 Acetaminophen (Tylenol) 650 mg Q4H PRN ORAL Mild Pain (Pain Scale 1-3) 04/23/20 23:00 05/23/20 22:59 Amlodipine Besylate (Norvasc) 5 mg DAILY ORAL 11/5/20 09:00 05/26/20 08:59 04/27/20 08:35 Aspirin (Ecotrin) 81 mg DAILY ORAL 04/24/20 09:00 06/08/20 08:59 04/28/20 08:06 Dextrose/Sodium Chloride 1,000 ml @ 75 mls/hr [id number] IV 04/24/20 15:15 05/24/20 15:14 04/28/20 08:08 Levofloxacin (Levaquin) 250 mg DAILY ORAL 04/27/20 12:30 05/04/20 12:29 04/28/20 08:06 Levothyroxine Sodium (Synthroid) 25 mcg ACBREAKFAST ORAL 04/24/20 06:30 05/24/20 06:29 04/28/20 06:33 Metoprolol Tartrate (Lopressor) 25 mg EVERY 12 HOURS ORAL 04/26/20 09:00 07/22/20 20:59 04/28/20 08:07 Tamsulosin HCl (Flomax) 0.4 mg BID ORAL 04/24/20 15:03 05/24/20 15:02 04/28/20 08:06 Supa Grey MD Apr 28, 2020 13:49
[2020-04-28 16:00] VITALS: BP 101/73
--- NOTE | 2020-04-28 19:36 | NUR ---
NURSE HAND-OFF: Important Events on Shift:[WOUND TREATMENT; CHANGED DIET TEXTURE] Patient Status: [STABLE] Diet: [RENAL SOFT EASY CHEW] Pending Orders: [LABS] Pending Results/Labs:ARACELI] Pending MD notification:[] Latest Vital Signs: Temperature 98.3 , Pulse 70 , B/P 101 /73 , Respiratory Rate 19 , O2 SAT 97 , Room Air, O2 Flow Rate . Vital Sign Comment: [] Latest Dawson Fall Score: 45 Fall Risk: High Risk Safety Measures: Call light Within Reach, Bed Alarm Zone 2, Side Rails Side Rails x3, Bed position Low and Locked. Fall Precautions: Patient Fall Education Report given to [THUI].
--- NOTE | 2020-04-28 19:59 | NUR ---
NURSE NOTES: RECEIVED PATIENT FROM ANGELICA COBIAN. PATIENT IS AWAKE, CALM, RESTING IN BED, AAOX3, ON ROOM AIR, NO ACUTE DISTRESS NOTED. DENIES SOB, DENIES PAIN. BALLESTEROS CATH IN PLACE, DRAINING WELL, BALLESTEROS ANCHOR PRESENT. PIV ON LEFT ARM 24G RUNNING D5 1/2 NS AT 75ML/HR. FALL RISK PRECAUTION IMPLEMENTED, ASPIRATION PRECAUTION IMPLEMENTED. BED IS LOCKED AND LOW, BED ALARMS ACTIVE, SIDE RAILS UPX2 AND CALL LIGHT IS WITHIN REACH. COMMUNICATED WITH STAFF TO PERFORM FREQUENT ROUNDING. YELLOW ARMBAND, YELLOW GOWN, YELLOW SOCKS AND DOOR SIGN IN PLACE. REINFORCED TEACHING LINE DIRECTOR LIGHT USE FOR ASSISTANCE, BELONGINGS WITHIN REACH. WILL CONTINUE TO MONITOR.
[2020-04-28 20:00] VITALS: BP 118/72
--- NOTE | 2020-04-28 20:16 | General Progress Note ---
Subjective ROS Limited/Unobtainable: Yes Allergies: Coded Allergies: No Known Allergies (Unverified , 04/23/20) Objective Last 24 Hour Vital Signs Date Time Temp Pulse Resp B/P (MAP) Pulse Ox O2 Delivery O2 Flow Rate FiO2 04/28/20 16:00 98.3 70 19 101/73 (82) 97 04/28/20 12:04 98.2 77 18 104/64 (77) 93 04/28/20 09:00 Room Air 04/28/20 08:08 97.9 76 18 117/69 (85) 99 04/28/20 08:07 76 117/69 04/28/20 08:07 76 117/69 04/28/20 04:00 98.6 86 18 141/82 (101) 99 04/28/20 00:00 97.9 79 18 134/79 (97) 97 04/27/20 21:03 85 123/89 04/27/20 21:00 Room Air Intake and Output 04/27/20 04/28/20 19:00 07:00 Intake Total 400 ml 557 ml Output Total 900 ml 750 ml Balance -500 ml -193 ml Intake Oral 400 ml 482 ml IV Total 75 ml Output Urine Total 900 ml 750 ml # Bowel Movements 1 Height (Feet): 6 Height (Inches): 0.00 Weight (Pounds): 180 Assessment/Plan Problem List: (1) Hyperkalemia ICD Codes: E87.5 - Hyperkalemia SNOMED: 90750277, 4054050 (2) VITALIY (acute kidney injury) ICD Codes: N17.9 - Acute kidney failure, unspecified SNOMED: 17120086, 7695859 (3) Hydronephrosis ICD Codes: N13.30 - Unspecified hydronephrosis SNOMED: 79141021 Status: progressing Assessment/Plan: renal failure is improving consulted dr almaraz for bilat hydro and mora persistent leukocytosis afebrile reviewed chart and labs Jorge James MD Apr 28, 2020 20:16
[2020-04-29] VITALS (8 sets, daily range): BP systolic 99–133; BP diastolic 60–77
[2020-04-29] MEDS: D5 1/2NS 1,000 ML IV SCH ×2 (01:55→16:22)
[2020-04-29] MEDS: Levothyroxine 25mcg tab ORAL SCH (06:05)
--- NOTE | 2020-04-29 06:56 | NUR ---
NURSE HAND-OFF: Important Events on Shift: NO ACUTE EVENTS, STABLE Patient Status: STABLE Diet: RENAL, SOFT EASY CHEW Pending Orders: N/A Pending Results/Labs: MAGNESIUM, PHOS, URIC, CMP, C-REACTIVE, CBC Pending MD notification: N/A Latest Vital Signs: Temperature 97.9 , Pulse 94 , B/P 123 /67 , Respiratory Rate 20 , O2 SAT 96 , Room Air, O2 Flow Rate . Vital Sign Comment: STABLE Latest Dawson Fall Score: 60 Fall Risk: High Risk Safety Measures: Call light Within Reach, Bed Alarm Zone 1, Side Rails Side Rails x2, Bed position Low and Locked. Fall Precautions: Yellow Socks Yellow Gown Door Sign Patient Fall Education
--- NOTE | 2020-04-29 07:10 | NUR ---
HAND-OFF: Report given to ANGELICA Golden. Endorsed POC.
--- NOTE | 2020-04-29 07:23 | NUR ---
NURSE NOTES: RECEIVED PATIENT LYING IN BED. ABLE TO VERBALIZE NEEDS. A/A/OX4, DENIES PAIN/DISCOMFORT NOTED. NO SIGNS AND SYMPTOMS OF ACUTE CARDIO-RESPIRATORY DISTRESS/SHORTNESS OF BREATH, NO PERIPHERAL EDEMA NOTED. ABDOMEN SOFT/NON DISTENDED/AUDIBLE BOWEL SOUNDS, NO REPORT OF N/V/D. BALLESTEROS CATHETER INTACT/PATENT, DRAINING YELLOW URINE VIA GRAVITY. SIDERAILS UP X3. BED IN LOWEST POSITION FOR SAFETY, CALL LIGHT WITHIN REACH, CONTINUE WITH CURRENT PLAN OF CARE.
[2020-04-29] MEDS: Aspirin EC 81mg tab ORAL SCH (08:36)
[2020-04-29] MEDS: Tamsulosin 0.4mg cap ORAL SCH ×2 (08:36→17:10)
--- NOTE | 2020-04-29 10:40 | NUR ---
NURSE NOTES: HAD ASKED MEDICAL ANTHROPOLOGY DIRECTOR TO SEE PRIMARY NURSE IF THEY DRAW BLOOD TO PATIENT. ACCDG TO RETENTION SPECIALIST PATIENT HAD REFUSED. WILL CONT TO MONITOR.
--- NOTE | 2020-04-29 12:09 | Nephrology Progress Note ---
Assessment/Plan Problem List: (1) VITALIY (acute kidney injury) (2) Hydronephrosis (3) Hyperkalemia (4) Anemia (5) Urinary outflow obstruction Assessment Acute renal failure Hyperkalemia on presentation to ER Most likely underlying chronic kidney failure Urinary outlet obstruction, as per ultrasound results Bilateral hydronephrosis Mild anemia History of schizophrenia Plan April 29: Today's labs as of writing this note is not done yet. Unclear with is patient's renal status. Discussed with RN. Continue current treatment plan. April 28: No labs drawn today. Will check lab tomorrow. Continue current management. Medication reviewed. April 27: Patient refused blood draw today. Need chemistry panel to assess improvement of renal status. May need psych evaluation in view of history of schizophrenia. April 26: Renal parameters improving. Magnesium low. IV magnesium ordered. Continue same management and continue to monitor renal parameters April 25: Patient given Kayexalate for high potassium. Norvasc added for better blood pressure control. Continue to monitor renal parameters. April 24: As follow: Wayne catheter Urological evaluation Slow hydration Avoid nephrotoxic Monitor renal parameters Discussed with PMD and RN Kidney ultrasound: 1. Large volume of urine retention postvoid with mild bilateral hydronephrosis. 3. 1.2 cm cyst lower pole right kidney. No follow-up imaging necessary Subjective ROS Limited/Unobtainable: No Constitutional: Reports: malaise Objective Objective Last 24 Hour Vital Signs Date Time Temp Pulse Resp B/P (MAP) Pulse Ox O2 Delivery O2 Flow Rate FiO2 04/29/20 08:37 69 121/73 04/29/20 08:37 69 121/73 04/29/20 08:00 98.1 69 21 121/73 (89) 97 04/29/20 04:00 97.9 94 20 123/67 (85) 96 04/29/20 00:00 99.0 92 20 133/77 (95) 97 04/28/20 21:00 Room Air 04/28/20 21:00 87 118/72 04/28/20 20:00 98.8 87 20 118/72 (87) 96 04/28/20 16:00 98.3 70 19 101/73 (82) 97 Intake and Output 04/28/20 04/29/20 19:00 07:00 Intake Total 1785 ml 525 ml Output Total 600 ml 550 ml Balance 1185 ml -25 ml Intake Oral 960 ml IV Total 825 ml 525 ml Output Urine Total 600 ml 550 ml Today's labs still not done Height (Feet): 6 Height (Inches): 0.00 Weight (Pounds): 180 General Appearance: no apparent distress Cardiovascular: normal rate Respiratory/Chest: decreased breath sounds Abdomen: soft Objective No change Darien Acosta MD Apr 29, 2020 12:09
[2020-04-29 12:59] LABS: BASOPHILS % (AUTO) 0.5 % (0.0-2.0); EOSINOPHILS % (AUTO) 18.5 % (0.0-3.0); HEMATOCRIT 31.6 % (42.0-52.0); HEMOGLOBIN 9.8 G/DL (14.2-18.0); LYMPHOCYTES % (AUTO) 15.3 % (20.0-45.0); MEAN CORPUSCULAR VOLUME 101 FL (80-99); MONOCYTES % (AUTO) 8.5 % (1.0-10.0); NEUTROPHILS % (AUTO) 57.2 % (45.0-75.0); PLATELET COUNT 260 K/UL (150-450); RED BLOOD COUNT 3.13 M/UL (4.70-6.10); RED CELL DISTRIBUTION WIDTH 12.3 % (11.6-14.8); WHITE BLOOD COUNT 11.2 K/UL (4.8-10.8)
[2020-04-29 13:16] LABS: ALANINE AMINOTRANSFERASE 25 U/L (12-78); ALBUMIN 2.4 G/DL (3.4-5.0); ALBUMIN/GLOBULIN RATIO 0.6 (1.0-2.7); ALKALINE PHOSPHATASE 82 U/L (46-116); ANION GAP 5 mmol/L (5-15); ASPARTATE AMINO TRANSFERASE 22 U/L (15-37); BILIRUBIN,TOTAL < 0.1 MG/DL (0.2-1.0); BLOOD UREA NITROGEN 39 mg/dL (7-18); CARBON DIOXIDE 26 MMOL/L (21-32); CHLORIDE 108 MMOL/L (98-107); CREATININE 2.1 MG/DL (0.55-1.30); PHOSPHORUS 3.5 MG/DL (2.5-4.9); POTASSIUM 4.8 MMOL/L (3.5-5.1); SODIUM 139 MMOL/L (136-145)
--- NOTE | 2020-04-29 15:19 | General Progress Note ---
Subjective ROS Limited/Unobtainable: Yes Allergies: Coded Allergies: No Known Allergies (Unverified , 04/23/20) Objective Last 24 Hour Vital Signs Date Time Temp Pulse Resp B/P (MAP) Pulse Ox O2 Delivery O2 Flow Rate FiO2 04/29/20 12:00 97.1 73 17 99/60 (73) 99 04/29/20 09:00 Room Air 04/29/20 08:37 69 121/73 04/29/20 08:37 69 121/73 04/29/20 08:00 98.1 69 21 121/73 (89) 97 04/29/20 04:00 97.9 94 20 123/67 (85) 96 04/29/20 00:00 99.0 92 20 133/77 (95) 97 04/28/20 21:00 Room Air 04/28/20 21:00 87 118/72 04/28/20 20:00 98.8 87 20 118/72 (87) 96 04/28/20 16:00 98.3 70 19 101/73 (82) 97 Intake and Output 04/28/20 04/29/20 19:00 07:00 Intake Total 1785 ml 525 ml Output Total 600 ml 550 ml Balance 1185 ml -25 ml Intake Oral 960 ml IV Total 825 ml 525 ml Output Urine Total 600 ml 550 ml Laboratory Tests 04/29/20 11:50: White Blood Count 11.2H, Red Blood Count 3.13L, Hemoglobin 9.8L, Hematocrit 31.6L, Mean Corpuscular Volume 101H, Mean Corpuscular Hemoglobin 31.4H, Mean Corpuscular Hemoglobin Concent 31.1L, Red Cell Distribution Width 12.3, Platelet Count 260, Mean Platelet Volume 7.0, Neutrophils (%) (Auto) 57.2, Lymphocytes (%) (Auto) 15.3L, Monocytes (%) (Auto) 8.5, Eosinophils (%) (Auto) 18.5H, Basophils (%) (Auto) 0.5, Sodium Level 139, Potassium Level 4.8, Chloride Level 108H, Carbon Dioxide Level 26, Anion Gap 5, Blood Urea Nitrogen 39H, Creatinine 2.1H, Estimat Glomerular Filtration Rate 31.8, Glucose Level 99, Uric Acid 4.5, Calcium Level 8.0L, Phosphorus Level 3.5, Magnesium Level 1.8, Total Bilirubin < 0.1L, Aspartate Amino Transf (AST/SGOT) 22, Alanine Aminotransferase (ALT/SGPT) 25, Alkaline Phosphatase 82, C-Reactive Protein, Quantitative 1.5H, Total Protein 6.6, Albumin 2.4L, Globulin 4.2, Albumin/Globulin Ratio 0.6L Height (Feet): 6 Height (Inches): 0.00 Weight (Pounds): 180 Assessment/Plan Problem List: (1) Hyperkalemia ICD Codes: E87.5 - Hyperkalemia SNOMED: 64985662, 8515296 (2) VITALIY (acute kidney injury) ICD Codes: N17.9 - Acute kidney failure, unspecified SNOMED: 07107636, 5874310 (3) Hydronephrosis ICD Codes: N13.30 - Unspecified hydronephrosis SNOMED: 75105953 Status: progressing Assessment/Plan: azotemia is improving afebrile no acute events reviewed chart and labs Jorge James MD Apr 29, 2020 15:19
--- NOTE | 2020-04-29 19:16 | NUR ---
NURSE HAND-OFF: Important Events on Shift: KEPT PATIENT CLEAN, COMFORTABLE. ] Patient Status: [STABLE] Diet: [RENAL SOFT EASY CHEW] Pending Orders: [NONE] Pending Results/Labs:[] Pending MD notification:[] Latest Vital Signs: Temperature 97.1 , Pulse 76 , B/P 119 /72 , Respiratory Rate 19 , O2 SAT 97 , Room Air, O2 Flow Rate . Vital Sign Comment: [] Latest Dawson Fall Score: 60 Fall Risk: High Risk Safety Measures: Call light Within Reach, Bed Alarm Zone 2, Side Rails Side Rails x3, Bed position Low and Locked. Fall Precautions: Yellow Socks Yellow Gown Door Sign Patient Fall Education Report given to [NORMAN].
--- NOTE | 2020-04-29 19:28 | NUR ---
NURSE NOTES: Received report from Mery. CRISTOPHER x 2-3, on room air. Wayne in place and draining yellow urine. IV site intact and running IVF. Denies pain or discomfort. No acute distress noted. Bed locked, lowest position, alarm on, side rails up, call light within reach. Will continue to monitor.
[2020-04-30 04:00] VITALS: BP 138/84
[2020-04-30] MEDS: D5 1/2NS 1,000 ML IV SCH (05:32)
[2020-04-30] MEDS: Levothyroxine 25mcg tab ORAL SCH (05:32)
--- NOTE | 2020-04-30 06:33 | NUR ---
NURSE HAND-OFF: Important Events on Shift:none Patient Status: stable Diet: renal soft easy chew Pending Orders: Pending Results/Labs: Pending MD notification: Latest Vital Signs: Temperature 98.1 , Pulse 86 , B/P 138 /84 , Respiratory Rate 20 , O2 SAT 97 , Room Air, O2 Flow Rate . Vital Sign Comment: [] Latest Dawson Fall Score: 60 Fall Risk: High Risk Safety Measures: Call light Within Reach, Bed Alarm Zone 2, Side Rails Side Rails x3, Bed position Low and Locked. Fall Precautions: Yellow Socks Yellow Gown Door Sign Patient Fall Education Addendum: 04/30/20 at 0717 by NORMAN CHAIREZ RN RN HAND-OFF: Report given to
--- NOTE | 2020-04-30 07:25 | NUR ---
NURSE NOTES: RECEIVED PATIENT LYING IN BED. ABLE TO VERBALIZE NEEDS. CALM AND COMFOTABLE. A/A/OX4, DENIES PAIN/DISCOMFORT NOTED. NO SIGNS AND SYMPTOMS OF ACUTE CARDIO-RESPIRATORY DISTRESS/SHORTNESS OF BREATH, NO PERIPHERAL EDEMA NOTED. ABDOMEN SOFT/NON DISTENDED/AUDIBLE BOWEL SOUNDS, NO REPORT OF N/V/D. BALLESTEROS CATHETER INTACT/PATENT, DRAINING YELLOW URINE VIA GRAVITY. SIDERAILS UP X3. BED IN LOWEST POSITION FOR SAFETY, CALL LIGHT WITHIN REACH, CONTINUE WITH CURRENT PLAN OF CARE.
[2020-04-30 08:00] VITALS: BP 122/71
[2020-04-30] MEDS: Aspirin EC 81mg tab ORAL SCH (08:28)
[2020-04-30] MEDS: Tamsulosin 0.4mg cap ORAL SCH (08:28)
--- NOTE | 2020-04-30 10:13 | Nephrology Progress Note ---
Assessment/Plan Problem List: (1) VITALIY (acute kidney injury) (2) Hydronephrosis Assessment: Obstructive uropathy (3) Hyperkalemia (4) Anemia (5) Urinary outflow obstruction Assessment Acute renal failure Hyperkalemia on presentation to ER Most likely underlying chronic kidney failure Urinary outlet obstruction, as per ultrasound results Bilateral hydronephrosis Mild anemia History of schizophrenia Plan April 30: Labs as of yesterday serum creatinine 2.1. Continue as is and assure patency of Wayne catheter. Bladder scan ordered IV fluid discontinued urine analysis and cultures were reordered. April 29: Today's labs as of writing this note is not done yet. Unclear with is patient's renal status. Discussed with RN. Continue current treatment plan. April 28: No labs drawn today. Will check lab tomorrow. Continue current management. Medication reviewed. April 27: Patient refused blood draw today. Need chemistry panel to assess improvement of renal status. May need psych evaluation in view of history of schizophrenia. April 26: Renal parameters improving. Magnesium low. IV magnesium ordered. Continue same management and continue to monitor renal parameters April 25: Patient given Kayexalate for high potassium. Norvasc added for better blood pressure control. Continue to monitor renal parameters. April 24: As follow: Wayne catheter Urological evaluation Slow hydration Avoid nephrotoxic Monitor renal parameters Discussed with PMD and RN Kidney ultrasound: 1. Large volume of urine retention postvoid with mild bilateral hydronephrosis. 3. 1.2 cm cyst lower pole right kidney. No follow-up imaging necessary Subjective ROS Limited/Unobtainable: No Constitutional: Reports: malaise Objective Objective Last 24 Hour Vital Signs Date Time Temp Pulse Resp B/P (MAP) Pulse Ox O2 Delivery O2 Flow Rate FiO2 04/30/20 08:29 86 122/71 04/30/20 08:29 86 122/71 04/30/20 08:00 97.5 86 18 122/71 (88) 100 04/30/20 04:00 98.1 86 20 138/84 (102) 97 04/29/20 23:56 98.2 77 19 125/71 (89) 97 04/29/20 21:00 Room Air 04/29/20 20:30 86 123/63 04/29/20 20:00 98.0 86 19 123/63 (83) 96 04/29/20 16:00 97.1 76 19 119/72 (88) 97 04/29/20 12:00 97.1 73 17 99/60 (73) 99 Intake and Output 04/29/20 04/30/20 19:00 07:00 Intake Total 1740 ml 800 ml Output Total 1130 ml Balance 1740 ml -330 ml Intake Oral 840 ml 800 ml IV Total 900 ml Output Urine Total 1130 ml Current Medications Medications (Trade) Dose Ordered Sig/Eulalia Route PRN Reason Start Time Stop Time Status Last Admin Dose Admin Acetaminophen (Tylenol) 325 mg Q4H PRN ORAL Mild Pain (Pain Scale 1-3) 04/23/20 20:00 05/23/20 19:59 Acetaminophen (Tylenol) 650 mg Q4H PRN ORAL Mild Pain (Pain Scale 1-3) 04/23/20 23:00 05/23/20 22:59 Amlodipine Besylate (Norvasc) 5 mg DAILY ORAL 04/26/20 09:00 05/26/20 08:59 04/30/20 08:29 Aspirin (Ecotrin) 81 mg DAILY ORAL 04/24/20 09:00 06/08/20 08:59 04/30/20 08:28 Dextrose/Sodium Chloride 1,000 ml @ 75 mls/hr [id number] IV 04/24/20 15:15 05/24/20 15:14 04/30/20 05:32 Levofloxacin (Levaquin) 250 mg DAILY ORAL 04/27/20 12:30 05/04/20 12:29 04/30/20 08:28 Levothyroxine Sodium (Synthroid) 25 mcg ACBREAKFAST ORAL 04/24/20 06:30 05/24/20 06:29 04/30/20 05:32 Metoprolol Tartrate (Lopressor) 25 mg EVERY 12 HOURS ORAL 04/26/20 09:00 07/22/20 20:59 04/30/20 08:29 Tamsulosin HCl (Flomax) 0.4 mg BID ORAL 04/24/20 15:03 05/24/20 15:02 04/30/20 08:28 Laboratory Tests 04/29/20 11:50: White Blood Count 11.2H, Red Blood Count 3.13L, Hemoglobin 9.8L, Hematocrit 31.6L, Mean Corpuscular Volume 101H, Mean Corpuscular Hemoglobin 31.4H, Mean Corpuscular Hemoglobin Concent 31.1L, Red Cell Distribution Width 12.3, Platelet Count 260, Mean Platelet Volume 7.0, Neutrophils (%) (Auto) 57.2, Lymphocytes (%) (Auto) 15.3L, Monocytes (%) (Auto) 8.5, Eosinophils (%) (Auto) 18.5H, Basophils (%) (Auto) 0.5, Sodium Level 139, Potassium Level 4.8, Chloride Level 108H, Carbon Dioxide Level 26, Anion Gap 5, Blood Urea Nitrogen 39H, Creatinine 2.1H, Estimat Glomerular Filtration Rate 31.8, Glucose Level 99, Uric Acid 4.5, Calcium Level 8.0L, Phosphorus Level 3.5, Magnesium Level 1.8, Total Bilirubin < 0.1L, Aspartate Amino Transf (AST/SGOT) 22, Alanine Aminotransferase (ALT/SGPT) 25, Alkaline Phosphatase 82, C-Reactive Protein, Quantitative 1.5H, Total Protein 6.6, Albumin 2.4L, Globulin 4.2, Albumin/Globulin Ratio 0.6L Height (Feet): 6 Height (Inches): 0.00 Weight (Pounds): 180 General Appearance: no apparent distress Cardiovascular: normal rate Respiratory/Chest: lungs clear Abdomen: soft Objective No change Darien Acosta MD Apr 30, 2020 10:13
--- NOTE | 2020-04-30 10:44 | Infectious Diseases Prog Note ---
Assessment/Plan Assessment/Plan IMPRESSION: Leukocytosis improving Urinary retention BPH, Hydronephrosis , Chronic kidney disease, Hyperkalemia that is corrected, Hypertension Hypothyroidism. Psychosis RECOMMENDATION: Can be discharged without antibiotic Subjective ROS Limited/Unobtainable: Yes Constitutional: Reports: no symptoms Respiratory: Reports: no symptoms Gastrointestinal/Abdominal: Reports: no symptoms Genitourinary: Reports: no symptoms Allergies: Coded Allergies: No Known Allergies (Unverified , 04/23/20) Objective Last 24 Hour Vital Signs Date Time Temp Pulse Resp B/P (MAP) Pulse Ox O2 Delivery O2 Flow Rate FiO2 04/30/20 08:29 86 122/71 04/30/20 08:29 86 122/71 04/30/20 08:00 97.5 86 18 122/71 (88) 100 04/30/20 04:00 98.1 86 20 138/84 (102) 97 04/29/20 23:56 98.2 77 19 125/71 (89) 97 04/29/20 21:00 Room Air 04/29/20 20:30 86 123/63 04/29/20 20:00 98.0 86 19 123/63 (83) 96 04/29/20 16:00 97.1 76 19 119/72 (88) 97 04/29/20 12:00 97.1 73 17 99/60 (73) 99 Height (Feet): 6 Height (Inches): 0.00 Weight (Pounds): 180 General Appearance: no acute distress HEENT: mucous membranes moist Respiratory/Chest: lungs clear Cardiovascular: normal rate Abdomen: soft, non tender Genitourinary: other - Wayne catheter Extremities: no edema Neurologic/Psychiatric: alert, responsive Laboratory Tests Test 04/29/20 11:50 White Blood Count 11.2 K/UL (4.8-10.8) H Red Blood Count 3.13 M/UL (4.70-6.10) L Hemoglobin 9.8 G/DL (14.2-18.0) L Hematocrit 31.6 % (42.0-52.0) L Mean Corpuscular Volume 101 FL (80-99) H Mean Corpuscular Hemoglobin 31.4 PG (27.0-31.0) H Mean Corpuscular Hemoglobin Concent 31.1 G/DL (32.0-36.0) L Red Cell Distribution Width 12.3 % (11.6-14.8) Platelet Count 260 K/UL (150-450) Mean Platelet Volume 7.0 FL (6.5-10.1) Neutrophils (%) (Auto) 57.2 % (45.0-75.0) Lymphocytes (%) (Auto) 15.3 % (20.0-45.0) L Monocytes (%) (Auto) 8.5 % (1.0-10.0) Eosinophils (%) (Auto) 18.5 % (0.0-3.0) H Basophils (%) (Auto) 0.5 % (0.0-2.0) Sodium Level 139 MMOL/L (136-145) Potassium Level 4.8 MMOL/L (3.5-5.1) Chloride Level 108 MMOL/L (98-107) H Carbon Dioxide Level 26 MMOL/L (21-32) Anion Gap 5 mmol/L (5-15) Blood Urea Nitrogen 39 mg/dL (7-18) H Creatinine 2.1 MG/DL (0.55-1.30) H Estimat Glomerular Filtration Rate 31.8 mL/min (>60) Glucose Level 99 MG/DL (74-106) Uric Acid 4.5 MG/DL (2.6-7.2) Calcium Level 8.0 MG/DL (8.5-10.1) L Phosphorus Level 3.5 MG/DL (2.5-4.9) Magnesium Level 1.8 MG/DL (1.8-2.4) Total Bilirubin < 0.1 MG/DL (0.2-1.0) L Aspartate Amino Transf (AST/SGOT) 22 U/L (15-37) Alanine Aminotransferase (ALT/SGPT) 25 U/L (12-78) Alkaline Phosphatase 82 U/L (46-116) C-Reactive Protein, Quantitative 1.5 mg/dL (0.00-0.90) H Total Protein 6.6 G/DL (6.4-8.2) Albumin 2.4 G/DL (3.4-5.0) L Globulin 4.2 g/dL Albumin/Globulin Ratio 0.6 (1.0-2.7) L Current Medications Medications (Trade) Dose Ordered Sig/Eulalia Route PRN Reason Start Time Stop Time Status Last Admin Dose Admin Acetaminophen (Tylenol) 325 mg Q4H PRN ORAL Mild Pain (Pain Scale 1-3) 04/23/20 20:00 05/23/20 19:59 Acetaminophen (Tylenol) 650 mg Q4H PRN ORAL Mild Pain (Pain Scale 1-3) 04/23/20 23:00 05/23/20 22:59 Amlodipine Besylate (Norvasc) 5 mg DAILY ORAL 04/26/20 09:00 05/26/20 08:59 04/30/20 08:29 Aspirin (Ecotrin) 81 mg DAILY ORAL 04/24/20 09:00 06/08/20 08:59 04/30/20 08:28 Levothyroxine Sodium (Synthroid) 25 mcg ACBREAKFAST ORAL 04/24/20 06:30 05/24/20 06:29 04/30/20 05:32 Metoprolol Tartrate (Lopressor) 25 mg EVERY 12 HOURS ORAL 04/26/20 09:00 07/22/20 20:59 04/30/20 08:29 Tamsulosin HCl (Flomax) 0.4 mg BID ORAL 04/24/20 15:03 05/24/20 15:02 04/30/20 08:28 Supa Grey MD Apr 30, 2020 10:44
--- NOTE | 2020-04-30 10:49 | NUR ---
NURSE NOTES: CALLED DR CHAN'S OFFICE AND SPOKE WITH MARCELLA RE: PVR RESULT 125ML. AWAITING FOR A CALLBACK.
--- NOTE | 2020-04-30 11:15 | NUR ---
NURSE NOTES: URINE SAMPLE SENT FOR U/A AND CULTURE TO LAB. WILL CONT TO MONITOR.
[2020-04-30 11:25] LABS: APPEARANCE,URINE CLEAR; BILIRUBIN, URINE NEGATIVE (NEGATIVE); COLOR,URINE PALE YELLOW; GLUCOSE, URINE (UA) NEGATIVE (NEGATIVE); KETONES,URINE NEGATIVE (NEGATIVE); LEUKOCYTE ESTERASE ,URINE 1+ (NEGATIVE); NITRITE,URINE NEGATIVE (NEGATIVE); PH,URINE 5 (4.5-8.0); PROTEIN,URINE 2+ (NEGATIVE); UROBILINOGEN,URINE NORMAL MG/DL (0.0-1.0)
--- NOTE | 2020-04-30 11:26 | NUR ---
*-*DISCHARGE PLANNING*-* PATIENT HAS BEEN REFERRED BACK TO: [facility] P: [phone]
[2020-04-30 12:08] VITALS: BP 123/50
--- NOTE | 2020-04-30 12:16 | NUR ---
*-*DISCHARGE PLANNED*-* PATIENT HAS BEEN ACCEPTED AND WILL BE DISCHARGED BACK TO: [facility] P: [phone] FOR NURSE TO NURSE REPORT ROOM# 316.[facility] TRANSPORT[facility] SET FOR 1:15PM S/W [address] A CALL TO PATIENT GUARDIAN, FAN BLANCHARD, NO ANSWER, LEFT VOICE MESSAGE IN REGARDS TO DISCHARGE PLAN.
--- NOTE | 2020-04-30 13:36 | NUR ---
NURSE NOTES: D/C'D BACK TO [facility] WITH DISCHARGE PACKET AND INSTRUCTIONS. INFORMED AND LEFT VOICEMSG TO FAN (GUARDIAN). REPORT GIVEN TO DELONTE @ [facility]. REMOVED IV HEPLOCK. BALLESTEROS INPLACED AND URINE DRAINS YELLOW COLOR. IN STABLE CONDITION. PERSONAL BELONGINGS NOTED. VSS.
--- NOTE | 2020-05-01 11:10 | Discharge Summary ---
Discharge Summary Discharge Summary _ DATE OF ADMISSION: 04/23/2020 DATE OF DISCHARGE: 04/30/2020 DISCHARGED BY: Dr. James REASON FOR ADMISSION: 65 years old male with past medical history of hypertension, schizophrenia, was [facility] for abnormal labs. Patient apparently had elevated BUN and creatinine in the facility. Patient by himself was unable to provide any significant information. He denied fever and chills. No chest pain or shortness of breath. No abdominal pain, nausea, vomiting or diarrhea. No dysuria or hematuria. Upon evaluation vital signs were stable. Rapid COVID-19 was negative Laboratory work-up revealed no leukocytosis , hemoglobin 10.8 , hematocrit 33.7 , platelet count 279. Potassium 6.3 , sodium 141. BUN 67, creatinine 2.3. Glucose 97. Stable LFT. Troponin negative . EKG revealed sinus rhythm, no acute ischemic changes Urinalysis revealed +2 protein, no evidence of UTI. Urine toxicology screen was negative. Chest x-ray revealed no acute cardiopulmonary pathology. Mild interstitial pr ominence noted ; nonspecific finding. In emergency department patient was hemodynamically. Hyperkalemia was treated with calcium , insulin, dextrose , IV fluids and Lasix . Potassium improved to 4.7 . Patient admitted to monitored floor for further management. CONSULTANTS: ID specialist Dr. Supa Grey supervisor coating Dr. Acosta urologist [facility]: Patient admitted and started on slow hydration. Renal parameters and electrolytes were closely monitored, electrolytes further corrected as needed , and nephrotoxic's were avoided. Renal ultrasound revealed large volume of urine retention post void with mild bilateral hydronephrosis. Right kidney cyst. Wayne catheter was placed. Patient started on Flomax . Urologist seen and evaluated patient . Urologist recommended discharge to facility with Wayne catheter and follow-up as outpatient for further decision regarding potential surgery versus chronic drainage . Prior to discharge BUN from 67 down to 39 . creatinine from 2.3 down to 2.1. 4.8. Potassium 4.8. Patient developed leukocytosis , however remained afebrile . No clear evidence of infection, CXR stable, Urinalysis negative. ID specialist recommended to monitor patient off antibiotic and observe closely. Blood pressure was managed with beta-moustapha and calcium channel moustapha. Antiplatelet therapy with aspirin continued. Synthroid continued. Supportive care provided. Patient clinically stabilized and was ready for [facility] back to [facility] for [facility] of care. FINAL DIAGNOSES: Acute kidney injury most likely on underlying chronic kidney disease Urinary outlet obstruction Urinary retention Bilateral hydronephrosis BPH Mild anemia Hyperkalemia initially -resolved Hypothyroidism Leukocytosis- improved Schizophrenia DISCHARGE MEDICATIONS: See Medication Reconciliation list. DISCHARGE INSTRUCTIONS: [facility]. Follow up with medical doctor at the facility. I have been assigned to dictate discharge summary for this account. I was not involved in the patient's management. Che Garcia NP May 01, 2020 11:10
== END 2020-04-30 13:34 | DRG 683 ==
LOC: EDBD 16:18 → EMR 16:30 → 2E 17:05 → EDBEDREQ 20:26 → 2E 23:47 → 4E 04-26 10:30
DX: N17.9 Acute kidney failure, unspecified (principal); N13.8 Other obstructive and reflux uropathy; E87.5 Hyperkalemia; N13.30 Unspecified hydronephrosis; F20.9 Schizophrenia, unspecified; N40.1 Benign prostatic hyperplasia with lower urinary tract symptoms; I12.9 Hypertensive chronic kidney disease with stage 1 through stage 4 chronic kidney disease, or unspecified chronic kidney disease; N18.9 Chronic kidney disease, unspecified; D64.9 Anemia, unspecified; R33.8 Other retention of urine; N28.1 Cyst of kidney, acquired; Z87.891 Personal history of nicotine dependence
CPT/HCPCS: 36415; 71045; 76770; 80053; 80061; 80307; 81001; 82550; 82607; 82728; 82746; 82977; 83036; 83540; 83550; 83615; 83735; 83880; 84100; 84300; 84443; 84484; 84550; 85025; 86140; 87081; 87086; 93005; 96361; 96374; 96375; 99291; J7030; U0002